=== PATIENT | male | born 1975 | race Caucasian/White ===

== ENCOUNTER 2019-05-16 13:28 | Outpatient (CLI) | payer OTHER, SELFPAY ==
--- NOTE | 2019-05-16 13:34 | XRR_ITS ---
PROCEDURE INFORMATION: Exam: XR Left Knee Exam date and time: 05/16/2019 2:27 PM Age: 44 years old Clinical indication: Pain; Knee; Left; Additional info: Arthritis, bilateral knee pain TECHNIQUE: Imaging protocol: XR Left knee. Views: Frontal, lateral, and oblique views. COMPARISON: No relevant prior studies available. FINDINGS: Bones/joints: No acute abnormality identified. A small quadriceps tendon enthesis of the superior pole of the patella is present. Soft tissues: Normal. XR/XR knee LT 3V* [id number] IMPRESSION: No acute findings.
--- NOTE | 2019-05-16 13:34 | XRR_ITS ---
PROCEDURE INFORMATION: Exam: XR Chest, 2 Views Exam date and time: 05/16/2019 2:29 PM Age: 44 years old Clinical indication: Condition or disease; Lung condition and disease; Asthma; Severity not specified; Additional info: Asthma; Arthritis TECHNIQUE: Imaging protocol: XR of the chest Views: 2 views. COMPARISON: No relevant prior studies available. FINDINGS: Lungs: The lungs are clear bilaterally. The pulmonary vasculature is normal. Pleural space: No pleural effusion. No pneumothorax. Heart/Mediastinum: The heart is normal in size and contour. Bones/joints: Right lateral and anterior vertebral body marginal osteophytes are noted at multiple thoracic spinal levels. XR/XR chest 2V* [id number] IMPRESSION: No acute cardiopulmonary abnormality identified.
--- NOTE | 2019-05-16 13:34 | XRR_ITS ---
PROCEDURE INFORMATION: Exam: XR Thoracic Spine, 3 Views Exam date and time: 05/16/2019 2:29 PM Age: 44 years old Clinical indication: Pain in thoracic spine; Additional info: Arthritis, back pain for years TECHNIQUE: Imaging protocol: XR of the thoracic spine, 3 views. Other technique: AP and lateral views and a swimmer's lateral view of the thoracic spine are submitted. COMPARISON: No relevant prior studies available. FINDINGS: Vertebrae: Right lateral vertebral body marginal osteophytes are noted at lower thoracic spinal levels. Soft tissues: Normal. XR/XR thoracic spine 2V [id number] IMPRESSION: 1. Degenerative changes as above. 2. No acute thoracic spinal bony abnormality identified.
--- NOTE | 2019-05-16 13:34 | XRR_ITS ---
PROCEDURE INFORMATION: Exam: XR Right Knee Exam date and time: 05/16/2019 2:27 PM Age: 44 years old Clinical indication: Pain; Knee; Right; Additional info: Arthritis, bilateral knee pain TECHNIQUE: Imaging protocol: XR Right knee. Views: Frontal, lateral, and oblique views. COMPARISON: No relevant prior studies available. FINDINGS: Bones/joints: Normal. Soft tissues: Normal. XR/XR knee RT 3V* [id number] IMPRESSION: No acute findings.
--- NOTE | 2019-05-16 13:34 | XRR_ITS ---
PROCEDURE INFORMATION: Exam: XR Lumbosacral Spine, 2 or 3 Views Exam date and time: 05/16/2019 2:29 PM Age: 44 years old Clinical indication: Low back pain; Additional info: Arthritis, back pain for years TECHNIQUE: Imaging protocol: XR of the lumbosacral spine, 3 views. Other technique: AP, lateral and spot lateral views of the lumbar spine are submitted. COMPARISON: No relevant prior studies available. FINDINGS: Vertebrae: Bilateral L4-L5 lumbar facet primary osteoarthritis, greater on the right. Soft tissues: Normal. XR/XR lumbar spine 2-3V* [id number] IMPRESSION: Bilateral lower lumbar facet primary osteoarthritis.
--- NOTE | 2019-05-16 13:54 | PFTS_ITS ---
Date of Study:05/16/2019 Date of Dictation: MECHANICS: Forced vital capacity (FVC) is reduced. Forced expiratory volume in one second (FEV1) is reduced. FEV1/FVC is normal. FLOW VOLUME LOOP: Narrow. LUNG VOLUMES: Not measured DIFFUSING CAPACITY FOR CARBON MONOXIDE: Not measured. INTERPRETATION: The pulmonary function tests are consistent with moderate restriction. There is no significant postbronchodilator response. MTDD
== END 2019-05-16 13:29 | disposition home or self-care (01) ==
PROVIDERS: Family Provider Internal Medicine; Visit Provider Orthopaedic Surgery
DX: J45.909 Unspecified asthma, uncomplicated (principal); M54.6 Pain in thoracic spine; M47.894 Other spondylosis, thoracic region; M54.5 Low back pain; M47.896 Other spondylosis, lumbar region; M25.562 Pain in left knee; M25.561 Pain in right knee
CPT/HCPCS: 71046; 72070; 72100; 73562; 94060; J7611

== ENCOUNTER 2019-07-07 14:03 | Outpatient (CLI) | payer OTHER, SELFPAY ==
--- NOTE | 2019-07-07 13:45 | XR_ITS ---
WS: [id number] ABDOMEN: SUPINE FILM HISTORY: renal calculus COMPARISON: None available. Normal bowel gas pattern. Right kidney: No definite stones identified. Possible 3 mm calcification in the mid RIGHT ureter late ral to the L4 vertebral body. Left kidney: No renal or ureteral stone identified. XR/XR KUB [id number] IMPRESSION: Indeterminate for 3 mm middle RIGHT ureteral calcification.
== END 2019-07-07 14:04 | disposition home or self-care (01) ==
LOC: RAD 14:06
PROVIDERS: Family Provider Internal Medicine; PCP Internal Medicine; Visit Provider Nurse Practitioner Family
DX: N20.0 Calculus of kidney (principal)
CPT/HCPCS: 74018; 81001

== ENCOUNTER 2019-07-18 12:44 | Emergency (ER) | payer OTHER, SELFPAY ==
[2019-07-18 12:53] VITALS: BP 170/112; PULSE 71; RESP 18; TEMP 37.1; O2SAT 98; BMI 38.7
--- NOTE | 2019-07-18 13:06 | CT_ITS ---
WS: [id number] CT ABDOMEN AND PELVIS NONCONTRAST HISTORY: Flank/Abdominal Pain TECHNIQUE: Imaging performed through the abdomen and pelvis. Coronal and sagittal reformats are submi tted. All CT scans at [facility] use at least one of these dose optimization techniques: automated exposure control; mA and/or kV adjustment per patient size (includes targeted exams where d ose is matched to clinical indication); or iterative reconstruction. DLP: 1869.73 mGy.cm COMPARISON: 04/21/2019 Lower thorax: No pneumonia. Small hiatal hernia. Liver: Mild hepatomegaly with moderate to severe hepatic steatosis. No bile duct dilatation. Gallbladder: Unremarkable. Pancreas: Normal. Spleen: Normal. Adrenal glands: Normal. Right kidney: Mild perinephric stranding. There is very slight dilatation of the RIGHT renal pelvis a nd RIGHT ureter with mild periureteral stranding. No calcification within the ureter. There is a calc ification measuring 3 mm in the central dependent portion of the urinary bladder. This is likely an e xtrinsic recently extruded calcification. Additional nonobstructing 2 mm calcifications in the renal pelvis. Left kidney: No obstruction. There are tiny calcifications which are nonobstructing in the renal pelv is. Normal caliber LEFT ureter. Abdominal aorta and IVC are unremarkable. No free fluid, intraperitoneal air or significant lymphadenopathy. GI tract: Normal appendix. No GI tract obstruction. No inflammation. There are a few diverticula with out diverticulitis. Abdominal wall: Small fat-containing umbilical hernia. Pelvis: Well-distended urinary bladder. There is a stone measuring 3 mm in the dependent portion of t he urinary bladder. Osseous structures: Unremarkable. CT/CT kidney stone [id number] IMPRESSION: 1. Very mild RIGHT perinephric and periureteral stranding. No obstructing calc ifications along the course of the ureters. There is a 3 mm stone in the depend ent portion of the urinary bladder which is probably a recently extruded calcif ication from the RIGHT ureter. 2. Additional nonobstructing 2 mm calcifications within each kidney. 3. Normal appendix. 4. Moderate hepatomegaly with severe hepatic steatosis. 5. Small hiatal hernia.
--- NOTE | 2019-07-18 13:07 | W.ED.GENADLT ---
HPI - General Adult General: Chief complaint: General Medical Stated complaint: KIDNEY STONES Time Seen by Provider: 07/18/19 13:01 History of Present Illness: HPI narrative: Adam is a very nice 44-year-old male who comes in complaining of right flank pain. He states this feels like a kidney stone that he has had in the past. The patient denies any blood in his urine. He has had nausea but no vomiting. Denies any fevers or chills. Denies any change in his bowel habits. Associated symptoms: Deny chest pain, confusion, diaphoresis, dyspnea, headache(s), malaise, nausea, rash, palpitations, syncope or vomiting Review of Systems General: Reports: other (negative unless marked) Const: Denies: fever, chills, body aches, fatigue, malaise or diaphoresis Eyes: Denies: change in vision or blurry vision ENMT: Denies: throat pain, painful swallowing, hoarseness, ear pain, ear discharge, Change in hearing or nasal discharge Card: Denies: chest pain, palpitations, irregular heart rhythm, syncope, pre-syncope, shortness of breath on exertion or shortness of breath when lying down Resp: Denies: shortness of breath, productive cough, non-productive cough, wheezing, coughing up blood or chest congestion GI: Denies: abdominal pain, nausea, vomiting, vomiting blood, coffee grounds in vomit, diarrhea, constipation, cramping, blood in stool or black tarry stool : Reports: flank pain; Denies: difficulty urinating, painful urination, urinary frequency, urinary urgency, decreased urine ouput, urinary incontinence or blood in urine Musc: Denies: neck pain, back pain, extremity pain, extremity swelling, joint pain, joint swelling, joint warmth or joint stiffness Skin/Breast: Denies: rash, skin tenderness or yellow skin Neuro: Denies: headache, numbness in extremities, weakness in extremities, changes in sensation, lack of coordination, difficulty walking, dizziness, vertigo or confusion Endo: Denies: excessive thirst, tired all the time, cold intolerance, excessive sweating, flushing or hot flashes Johnathan/Lymph: Denies: easy bruising, easy bleeding, petechiae or enlarged lymph nodes All/Imm: Denies: hives, throat swelling, tongue swelling, facial swelling or acute wheezing PFSH ED PFSH: Medical History Diabetes Hyperlipemia Hypertension Renal calculi Sleep apnea Surgical History History of placement of ear tubes History of tonsillectomy Family History Mother , 64 Cancer colon, breast, lung Diabetes Father No problems noted. Social History Smoking and tobacco status: never smoked Alcohol intake: never Marital status: Current occupational status: employed History of recent travel: No Physical Exam Const: COMMON NORMALS: no apparent distress, oriented x3, no limitations, healthy appearing and well nourished EXAM LIMITATIONS: no altered mental status GENERAL APPEARANCE: cooperative, well kempt and well developed ORIENTATION/CONSCIOUSNESS: Yes awake HENMT: COMMON NORMALS: normocephalic, head/scalp atraumatic, hearing grossly normal bilaterally, external ears normal, EAC's normal, external nose normal and moist oral mucous membranes HEAD & SCALP: normal to inspection, normocephalic and atraumatic FACE & SINUS: normal facial exam and face symmetric NOSE: external nose normal and nares normal EXTERNAL EAR: Yes external ears normal EXTERNAL AUDITORY CANAL: EAC's normal MOUTH: oral and palatal mucosa normal and tongue normal Eye: COMMON NORMALS: PERRL, EOMs intact bilaterally, conjunctivae normal and no scleral icterus GENERAL EYE: normal appearance of both eyes and normal light reflex CONJUNCTIVA: Yes conjunctivae normal SCLERA: sclerae normal CORNEA: Yes corneas normal PUPIL: Yes PERRL DIRECT OPHTHALMOSCOPY: Yes normal light reflex Neck/C-Spine: COMMON NORMALS: full ROM, no lymphadenopathy, supple, no meningeal signs and no JVD GENERAL: Yes normal visual inspection and Yes trachea midline CERVICAL SPINE: Yes cervical ROM normal Chest: COMMONS NORMALS: inspection of chest normal and palpation of chest normal Resp: COMMON NORMALS: normal respiratory effort, no retractions, no use of accessory muscles and clear to auscultation bilaterally EFFORT & INSPECTION: Yes able to speak in complete sentences AUSCULTATION: clear to auscultation bilaterally Cardio: COMMON NORMALS: no JVD, regular rate, regular rhythm, S1 normal heart sound, S2 normal heart sound, no gallops, no clicks, no murmurs and no rub JUGULAR VENOUS DISTENTION: no JVD RATE: regular rate RHYTHM: regular rhythm HEART SOUNDS: S1 normal and S2 normal GI: COMMON NORMALS: soft to palpation, non-tender, no hepatosplenomegaly and no masses INSPECTION: Yes normal to inspection PALPATION: Yes soft and Yes no hepatosplenomegaly : COMMON NORMALS: Yes no CVA tenderness BLADDER/KIDNEY EXAM: Yes no CVA tenderness Back/Pelvis: COMMON NORMALS: no CVA tenderness, thoracic and lumbar spine normal to inspection, no thoracic nor lumbar tenderness and thoraco-lumbar ROM normal Extremity: COMMON NORMALS: normal to inspection, full ROM, normal capillary refill, no joint enlargement, no clubbing, cyanosis or edema and no calf tenderness Neuro: COMMON NORMALS: oriented x3, CN's II-XII intact bilaterally, moves all extremities, no focal motor deficits and no sensory deficits noted MENINGEAL SIGNS: Yes no meningeal signs Psych: COMMON NORMALS: mental status grossly normal, thought process normal, cooperative, affect normal, speech normal and activity/motor behavior normal APPEARANCE: Yes well kempt SPEECH: Yes normal speech THOUGHT PROCESS: normal thought process Skin: COMMON NORMALS: no rashes or lesions noted, skin turgor normal, no jaundice, no petechiae and no mottling GENERAL SKIN EXAM: no rashes or lesions noted and turgor normal Course Vital Signs: Vital signs: Vital Signs Temperature 98.7 F 07/18/19 12:53 Pulse Rate 71 07/18/19 12:53 Respiratory Rate 18 07/18/19 13:59 Blood Pressure 170/112 07/18/19 12:53 Pulse Oximetry 98 07/18/19 13:59 MDM - General Adult MDM Narrative: Medical decision making narrative: 1450 -the patient is feeling much better and is ready to go home. He declines any further evaluation. He does agree to wait for his urinalysis to come back to be certain there is no evidence of infection. The patient appears as though he is just passed a stone. He agrees to continue to strain his urine and will follow-up with Dr. Garner. Lab Data: Attestation: I reviewed the patient's lab results. Labs: Lab Results 07/18/19 07/18/19 Range/Units 13:26 13:26 WBC 7.8 (4.0-10.0) 10^3/ uL RBC 4.36 (4.1-5.3) 10^6/u L Hgb 13.1 (11.7-16.6) g/dL Hct 37.0 L (42.0-52.0) % MCV 84.9 (80-94) fL MCH 30.0 (28.0-34.0) pg MCHC 35.4 (30.0-36.0) g/dL RDW 13.1 (12.1-15.1) % Plt Count 151 (130-400) 10^3/c mm MPV 9.3 (7.4-10.4) fL Neut % (Auto) 57.1 % Lymph % (Auto) 33.7 % [place] % (Auto) 5.9 % Eos % (Auto) 2.6 % Baso % (Auto) 0.3 % Neut # (Auto) 4.5 (1.8-7.7) 10^3/u L Lymph # (Auto) 2.6 (0.8-4.8) 10^3/u L [place] # (Auto) 0.5 (0.2-0.9) 10^3/u L Eos # (Auto) 0.2 (0.0-0.8) 10^3/u L Baso # (Auto) 0.0 (0.0-0.1) 10^3/u L Nucleated RBC % (a uto) 0 % Nucleated RBCs # 0.0 /100WBC Sodium 139 (136-145) mmol/L Potassium 4.3 (3.5-5.1) mmol/L Chloride 104 (98-107) mmol/L Carbon Dioxide 23 (22-29) mmol/L Anion Gap 16.3 (5-19) BUN 12 (6-20) mg/dL Creatinine 0.8 (0.7-1.2) mg/dL GFR Calculation 106.0 (90-130) mL/min Glucose 195 H (65-115) mg/dL Calculated Osmolal ity 289 (285-295) mOsm/k g Calcium 9.7 (8.5-10.5) mg/dL Total Bilirubin 0.4 (0.15-1.2) mg/dL AST 26 (0-40) U/L ALT 40 (0-41) U/L Alkaline Phosphata se 69 (40-130) IU/L Total Protein 6.9 (6.6-8.7) g/dL Albumin 4.2 (3.5-5.2) g/dL Globulin 2.7 (1.3-4.6) g/dL Lipase 19 (13-60) U/L Imaging Data^: CT Abd/Pel: Radiologist's impression: [place] [address] [place] [address] CT Scan Report Signed Patient: Adam Schwartz Unit #: [id number] : 1975 Age/Sex: 44 / M ADM Date: 07/18/19 Loc: ER Room/Bed: Attending Dr: Ordering Provider/Ordering MD: Trinity Solano DO Date of Service: 07/18/19 Procedure(s): CT kidney stone 16369 Accession Number(s): [id number] Report Number: [id number] WS: [id number] CT ABDOMEN AND PELVIS NONCONTRAST HISTORY: Flank/Abdominal Pain TECHNIQUE: Imaging performed through the abdomen and pelvis. Coronal and sagittal reformats are submitted. All CT scans at [facility] use at least one of these dose optimization techniques: automated exposure control; mA and/or kV adjustment per patient size (includes targeted exams where dose is matched to clinical indication); or iterative reconstruction. DLP: 1869.73 mGy.cm COMPARISON: 04/21/2019 Lower thorax: No pneumonia. Small hiatal hernia. Liver: Mild hepatomegaly with moderate to severe hepatic steatosis. No bile duct dilatation. Gallbladder: Unremarkable. Pancreas: Normal. Spleen: Normal. Adrenal glands: Normal. Right kidney: Mild perinephric stranding. There is very slight dilatation of the RIGHT renal pelvis and RIGHT ureter with mild periureteral stranding. No calcification within the ureter. There is a calcification measuring 3 mm in the central dependent portion of the urinary bladder. This is likely an extrinsic recently extruded calcification. Additional nonobstructing 2 mm calcifications in the renal pelvis. Left kidney: No obstruction. There are tiny calcifications which are nonobstructing in the renal pelvis. Normal caliber LEFT ureter. Abdominal aorta and IVC are unremarkable. No free fluid, intraperitoneal air or significant lymphadenopathy. GI tract: Normal appendix. No GI tract obstruction. No inflammation. There are a few diverticula without diverticulitis. Abdominal wall: Small fat-containing umbilical hernia. Pelvis: Well-distended urinary bladder. There is a stone measuring 3 mm in the dependent portion of the urinary bladder. Osseous structures: Unremarkable. CT/CT kidney stone [id number] IMPRESSION: 1. Very mild RIGHT perinephric and periureteral stranding. No obstructing calcifications along the course of the ureters. There is a 3 mm stone in the dependent portion of the urinary bladder which is probably a recently extruded calcification from the RIGHT ureter. 2. Additional nonobstructing 2 mm calcifications within each kidney. 3. Normal appendix. 4. Moderate hepatomegaly with severe hepatic steatosis. 5. Small hiatal hernia. Dictated By: Neeru Young DO Signed By: Neeru Young DO Signed Date/Time: 07/18/19 1352 DD/ 1346 Discharge Plan Discharge Patient Disposition: Home, Self-Care Clinical Impression: Renal calculi Condition: Stable Prescriptions: No Action metoprolol tartrate 50 mg tablet 50 mg PO DAILY RF: 0 aspirin 81 mg tablet,delayed release (DR/EC) 81 mg PO DAILY RF: 0 Lantus U-100 Insulin 100 unit/mL solution 64 unit SUBCUT DAILY RF: 0 insulin aspart U-100 [Novolog U-100 Insulin aspart] 100 unit/mL solution 5 unit SUBCUT TID RF: 0 pravastatin 20 mg tablet 20 mg PO DAILY RF: 0 doxycycline hyclate 100 mg capsule 100 mg PO BID RF: 0 Referrals: Ifeanyi Mays [Primary Care Provider] - Sam Garner MD [Physician] - 1-3 days Discharge Diet: Advance as tolerated Discharge Activity: Increase activity as tolerated Patient Instructions: Kidney Stones (ED), Renal Colic (ED), How to Strain Your Urine (ED), Flank Pain (ED) Activity Restrictions/Additional Instructions: Please return to the ER immediately for any of the signs or symptoms listed on your discharge instruction sheets, worsening/changing of your symptoms, you are not getting better as quickly as expected, or for ANY other cause or concerns. Coding Level of Care Code ED Drop Pit Worker for Elena Fwd Exam Comprehensive
[2019-07-18 13:35] LABS: Basophils % 0.3 %; Eosinophils # 0.2 10^3/uL (0.0-0.8); Eosinophils % 2.6 %; Hemoglobin 13.1 g/dL (11.7-16.6); Lymphocytes # 2.6 10^3/uL (0.8-4.8); Lymphocytes % 33.7 %; Mean Corpuscular HGB Conc 35.4 g/dL (30.0-36.0); Mean Corpuscular Volume 84.9 fL (80-94); Mean Platelet Volume 9.3 fL (7.4-10.4); Monocytes # 0.5 10^3/uL (0.2-0.9); Monocytes % 5.9 %; Neutrophils # 4.5 10^3/uL (1.8-7.7); Neutrophils % 57.1 %; Nucleated Red Blood Cells % 0 %; Platelet Count 151 10^3/cmm (130-400); Red Blood Count 4.36 10^6/uL (4.1-5.3); Red Cell Distribution Width 13.1 % (12.1-15.1); White Blood Count 7.8 10^3/uL (4.0-10.0)
[2019-07-18] MEDS: ondansetron 2 mg/ML SDV 2 mL 4 MG IVP (13:58)
[2019-07-18 13:59] VITALS: RESP 18; O2SAT 98
[2019-07-18] MEDS: HYDROmorphone 1 mg/mL INJ 1 mL 0.5 MG IVP (13:59)
[2019-07-18 14:03] LABS: Alanine Aminotransferase 40 U/L (0-41); Albumin Level 4.2 g/dL (3.5-5.2); Alkaline Phosphatase 69 IU/L (40-130); Anion Gap 16.3 (5-19); Aspartate Amino Transferase 26 U/L (0-40); Blood Urea Nitrogen 12 mg/dL (6-20); Calcium 9.7 mg/dL (8.5-10.5); Carbon Dioxide 23 mmol/L (22-29); Chloride 104 mmol/L (98-107); Globulin 2.7 g/dL (1.3-4.6); Glucose 195 mg/dL (65-115); Lipase 19 U/L (13-60); Osmolality Calculated 289 mOsm/kg (285-295); Potassium 4.3 mmol/L (3.5-5.1); Sodium 139 mmol/L (136-145); Total Bilirubin 0.4 mg/dL (0.15-1.2); Total Protein 6.9 g/dL (6.6-8.7)
[2019-07-18 15:05] LABS: Add Urine Culture? No; Bilirubin Urine Neg (NEGATIVE); Blood Urine 2+ (Negative); Glucose Urine UA Norm (Normal); Ketones Urine Negative (Negative); Leukocyte Esterase Urine Negative (Negative); Nitrate Urine Negative (Negative); Protein Urine Neg (Negative); Urine Appearance Clear (CLEAR); Urine Color Yellow (Yellow); Urobilinogen Urine Norm (Negative); pH Urine 5 (5-7)
[2019-07-18 15:20] VITALS: BP 146/99; PULSE 74; RESP 16; O2SAT 96
[2019-07-18 17:20] VITALS: BP 138/92; PULSE 78; RESP 16; O2SAT 97
--- NOTE | 2019-07-19 11:11 | DCPLANNER ---
air quality manager had message to schedule a follow up appointment for patient with Dr. Garner. air quality manager called the office of Dr. Garner, spoke with Maggie, gave clinic patients information. air quality manager was told that patients information would be printed and given to Dayan for review. Clinic will call patient with appointment information. air quality manager will call for appointment information.
--- NOTE | 2019-07-22 10:00 | DCPLANNER ---
Patient had an appointment scheduled for 07.20.[address] Garner. Patient did attend appointment.
== END 2019-07-18 17:23 | disposition home or self-care (01) ==
PROVIDERS: Emergency Provider Emergency Medicine; PCP Internal Medicine
DX: N20.0 Calculus of kidney (principal); Z79.82 Long term (current) use of aspirin; Z79.4 Long term (current) use of insulin; E11.9 Type 2 diabetes mellitus without complications; E78.5 Hyperlipidemia, unspecified; I10 Essential (primary) hypertension; Z87.442 Personal history of urinary calculi
CPT/HCPCS: 12345; 74176; 80053; 81001; 83690; 85025; 96374; 96375; 99281; 99283; J1170; J2405

== ENCOUNTER 2019-07-20 13:02 | Outpatient (CLI) | payer OTHER, SELFPAY ==
--- NOTE | 2019-07-20 13:12 | XR_ITS ---
WS: [id number] ABDOMEN: SUPINE FILM HISTORY: RENAL CALCULI COMPARISON: 07/18/2019 and 07/07/2019 Normal bowel gas pattern. Right kidney: No renal or ureteral stone identified. Left kidney: No renal or ureteral stone identified. XR/XR KUB [id number] IMPRESSION: No residual RIGHT ureteral calcifications.
== END 2019-07-20 13:03 | disposition home or self-care (01) ==
LOC: RAD 13:04
PROVIDERS: PCP Internal Medicine; Visit Provider Urology
DX: N20.0 Calculus of kidney (principal)
CPT/HCPCS: 74018; 81001; 82365

== ENCOUNTER 2019-10-03 11:14 | Outpatient (CLI) | payer OTHER, SELFPAY ==
--- NOTE | 2019-10-03 11:20 | XRR_ITS ---
PROCEDURE INFORMATION: Exam: XR Right Ribs Exam date and time: 10/03/2019 12:12 PM Age: 44 years old Clinical indication: Right rib pain from fall TECHNIQUE: Imaging protocol: XR Right ribs. Views: 2 views. COMPARISON: CR XR chest 2V* [id number] 05/16/2019 2:04 PM FINDINGS: Bones/joints: There are nondisplaced fractures of the lateral 4th and 5th ribs. Lungs: No lung contusion. Pleural space: No pneumothorax. Soft tissues: No acute soft tissue abnormality. XR/XR ribs RT 2V* [id number] IMPRESSION: Nondisplaced 4th and 5th rib fractures. No pneumothorax.
== END 2019-10-03 11:15 | disposition home or self-care (01) ==
LOC: RAD 11:16
PROVIDERS: PCP Internal Medicine; Visit Provider Nurse Practitioner Family
DX: S22.41XA Multiple fractures of ribs, right side, initial encounter for closed fracture (principal); X58.XXXA Exposure to other specified factors, initial encounter
CPT/HCPCS: 71100

== ENCOUNTER 2020-02-25 06:46 | Emergency (ER) | payer OTHER, SELFPAY ==
[2020-02-25] VITALS (7 sets, daily range): BP systolic 134–177; BP diastolic 74–110; PULSE 67–80; RESP 16–18; TEMP 36.4–36.9; O2SAT 95–98; BMI 38.7
--- NOTE | 2020-02-25 06:59 | XRR_ITS ---
PROCEDURE INFORMATION: Exam: XR Abdomen, 1 View Exam date and time: 02/25/2020 7:19 AM Age: 45 years old Clinical indication: Abdominal pain; Flank; Left; Additional info: Nephrolithiasis TECHNIQUE: Imaging protocol: XR of the abdomen. Views: Frontal supine view of the abdomen. 1 View. COMPARISON: CR XR KUB [id number] 07/20/2019 1:26 PM FINDINGS: Gastrointestinal tract: Normal. No bowel dilation. Organs: No renal calcifications are seen. Bones/joints: Unremarkable. XR/XR KUB portable [id number] IMPRESSION: No acute findings.
[2020-02-25] MEDS: morphine 4 mg/mL SDV 1 mL IVP (07:27)
[2020-02-25] MEDS: ondansetron 2 mg/ML SDV 2 mL 4 MG IVP (07:32)
[2020-02-25 07:53] LABS: Basophils % 0.3 %; Eosinophils # 0.1 10^3/uL (0.0-0.8); Eosinophils % 1.5 %; Hematocrit 38.6 % (42.0-52.0); Hemoglobin 13.2 g/dL (11.7-16.6); Lymphocytes % 33.8 %; Mean Corpuscular HGB Conc 34.2 g/dL (30.0-36.0); Mean Corpuscular Hemoglobin 30.1 pg (28.0-34.0); Mean Corpuscular Volume 87.9 fL (80-94); Monocytes # 0.5 10^3/uL (0.2-0.9); Monocytes % 6.1 %; Neutrophils # 5.07 10^3/uL (1.8-7.7); Neutrophils % 58.1 %; Nucleated Red Blood Cells % 0 %; Platelet Count 186 10^3/cmm (130-400); Red Blood Count 4.39 10^6/uL (4.1-5.3); White Blood Count 8.7 10^3/uL (4.0-10.0)
--- NOTE | 2020-02-25 07:54 | ED_ITS ---
HPI - General Adult General: Chief complaint: General Medical Stated complaint: flank pain Time Seen by Provider: 02/25/20 07:00 History of Present Illness: HPI narrative: 45-year-old male comes in complaining of left flank pain that began overnight. He states it feels like when he has had kidney stones in the past has had multiple episodes of stones previously. Denies any fever sweats chills dysuria urgency or frequency denies any hematuria. Onset (ago): hour(s) Location: abdomen (Left flank) Severity: severe Quality: stabbing Pain Consistency: constant Relieving factors: none Exacerbating factors: none Associated symptoms: Deny chest pain, confusion, cough, diaphoresis, decreased appetite, dyspnea, fevers/chills, headache(s), malaise, nausea, rash, palpitations, seizures, short of breath, syncope, vomiting or weakness Treatments prior to arrival: none Review of Systems Const: Denies: malaise or diaphoresis ENMT: Denies: throat pain, ear or mastoid pain, nasal discharge or nasal congestion Card: Denies: chest pain, palpitations or syncope Resp: Denies: dyspnea GI: Denies: nausea or vomiting : Denies: flank pain, dysuria, urinary frequency or urinary urgency Skin/Breast: Denies: rash Neuro: Denies: headache(s) or confusion PFSH ED PFSH: Medical History (Updated 02/25/20 @ 10:24 by Tereso Garza DO) Diabetes Hyperlipemia Hypertension Renal calculi Sleep apnea Surgical History History of placement of ear tubes History of tonsillectomy Family History Mother , 64 Cancer colon, breast, lung Diabetes Father No problems noted. Social History Smoking and tobacco status: never smoked Alcohol intake: never Marital status: Current occupational status: employed History of recent travel: No Physical Exam Const: COMMON NORMALS: no acute distress GENERAL APPEARANCE: cooperative and comfortable ORIENTATION/CONSCIOUSNESS: Yes awake, Yes oriented to person, Yes oriented to place and Yes oriented to time HENMT: COMMON NORMALS: normocephalic, atraumatic and hearing grossly normal bilaterally HEAD & SCALP: normocephalic and atraumatic Neck/C-Spine: COMMON NORMALS: no JVD Resp: COMMON NORMALS: normal respiratory effort, No retractions, No use of accessory muscles and clear to auscultation bilaterally AUSCULTATION: clear to auscultation bilaterally Cardio: COMMON NORMALS: no JVD, regular rate, regular rhythm and No murmurs present (Cardio) RATE: regular rate RHYTHM: regular rhythm GI: COMMON NORMALS: Soft to palpation and No hepatosplenomegaly present AUSCULTATION: Yes normoactive bowel sounds PALPATION: Yes Soft to palpation, No Tenderness to palpation present (GI), No Guarding due to palpation present (GI) and Yes No hepatosplenomegaly present : BLADDER/KIDNEY EXAM: Yes CVA tenderness Back/Pelvis: GENERAL BACK: Yes CVA tenderness CVA tenderness: left Extremity: COMMON NORMALS: normal to inspection, capillary refill normal, no clubbing, cyanosis or edema, no calf tenderness and no pedal edema Neuro: SENSORIUM/ORIENTATION: Yes oriented to person, Yes oriented to place and Yes oriented to time Skin: COMMON NORMALS: no rashes or lesions noted GENERAL SKIN EXAM: no rashes or lesions noted Course Vital Signs: Vital signs: Vital Signs Temperature 98.5 F 02/25/20 10:33 Pulse Rate 70 02/25/20 10:33 Respiratory Rate 16 02/25/20 10:33 Blood Pressure 138/86 02/25/20 10:33 Pulse Oximetry 97 02/25/20 10:33 MDM - General Adult MDM Narrative: Medical decision making narrative: Patient is feeling better. I suspected the patient may have already passed a stone the only unanswered question is he does not even have hematuria from after passing the stone the other possibility is this is just musculoskeletal pain although it does not seem to be reproducible in any way on active physical exam measures or on palpation. We will go ahead and discharge him home with hydrocodone watch symptoms closely for any problems return. Lab Data: Labs: Lab Results 02/25/20 02/25/20 02/25/20 Range/Units 07:24 07:24 09:04 WBC 8.7 (4.0-10.0) 10^3/ uL RBC 4.39 (4.1-5.3) 10^6/u L Hgb 13.2 (11.7-16.6) g/dL Hct 38.6 L (42.0-52.0) % MCV 87.9 (80-94) fL MCH 30.1 (28.0-34.0) pg MCHC 34.2 (30.0-36.0) g/dL RDW 13.0 (12.1-15.1) % Plt Count 186 (130-400) 10^3/c mm MPV 10.0 (7.4-10.4) fL Neut % (Auto) 58.1 % Lymph % (Auto) 33.8 % Fisher % (Auto) 6.1 % Eos % (Auto) 1.5 % Baso % (Auto) 0.3 % Neut # (Auto) 5.07 (1.8-7.7) 10^3/u L Lymph # (Auto) 3.0 (0.8-4.8) 10^3/u L Fisher # (Auto) 0.5 (0.2-0.9) 10^3/u L Eos # (Auto) 0.1 (0.0-0.8) 10^3/u L Baso # (Auto) 0.0 (0.0-0.1) 10^3/u L Nucleated RBC % (a uto) 0 % Nucleated RBCs # 0.0 /100WBC Sodium 136 (136-145) mmol/L Potassium 3.7 (3.5-5.1) mmol/L Chloride 100 (98-107) mmol/L Carbon Dioxide 24 (22-29) mmol/L Anion Gap 15.7 (5-19) BUN 15 (6-20) mg/dL Creatinine 0.6 L (0.7-1.2) mg/dL GFR Calculation 147.0 H (90-130) mL/min Glucose 303 H (65-115) mg/dL Calculated Osmolal ity 294 (285-295) mOsm/k g Calcium 9.0 (8.5-10.5) mg/dL Urine Color Straw (Yellow) Urine Appearance Clear (CLEAR) Urine pH 5 (5-7) Ur Specific Gravit y 1.025 (1.005-1.030) Urine Protein 3+ H (Negative) Urine Glucose (UA) 4+ H (Normal) Urine Ketones Negative (Negative) Urine Blood Neg (Negative) Urine Nitrate Negative (Negative) Urine Bilirubin Neg (Negative) Urine Urobilinogen Norm (Negative) mg/dL Ur Leukocyte Carlene ase Negative (Negative) Urine RBC None (0-2) /hpf Urine WBC None (0-5) /hpf Ur Squamous Epith Cells None (0-5) /hpf Amorphous Sediment Not Reportable Urine Bacteria None (NONE) /hpf Urine Mucus 2+ /hpf Discharge Plan Discharge Patient Disposition: Home Clinical Impression: Renal calculi Condition: Stable Prescriptions: New hydrocodone-acetaminophen 5-325 mg tablet 1 tab PO Q6H PRN (Reason: pain) Qty: 10 RF: 0 No Action metoprolol tartrate 50 mg tablet 75 mg PO DAILY RF: 0 aspirin 81 mg tablet,delayed release (DR/EC) 81 mg PO DAILY RF: 0 Lantus U-100 Insulin 100 unit/mL solution 64 unit SUBCUT DAILY RF: 0 insulin aspart U-100 [Novolog U-100 Insulin aspart] 100 unit/mL solution See Rx Instructions .ROUTE .COMPLEX RF: 0 pravastatin 20 mg tablet 10 mg PO DAILY RF: 0 doxycycline hyclate 100 mg capsule 100 mg PO BID RF: 0 minocycline 100 mg Capsule 100 mg PO BID RF: 0 gabapentin 100 mg Capsule 50 mg PO BEDTIME RF: 0 Fish Oil 1,000 mg (120 mg-180 mg) Capsule 1 cap PO BID RF: 0 Discharge Orders: Discharge ED (Routine); Ordered 02/25/20 Ordered By: Tereso Garza Referrals: Ifeanyi Mays [Primary Care Provider] - Coding Level of Care Code ED [employer] Operator for Chg Fwd Exam Comprehensive
--- NOTE | 2020-02-25 08:14 | CTR_ITS ---
PROCEDURE INFORMATION: Exam: CT Abdomen And Pelvis Without Contrast Exam date and time: 02/25/2020 8:25 AM Age: 45 years old Clinical indication: Abdominal pain; Flank; Left; Additional info: Flank pain TECHNIQUE: Imaging protocol: Computed tomography of the abdomen and pelvis without contrast. Radiation optimization: All CT scans at this facility use at least one of these dose optimization techniques: automated exposure control; mA and/or kV adjustment per patient size (includes targeted exams where dose is matched to clinical indication); or iterative reconstruction. COMPARISON: CT abdomen pelvis wo con [id number] 04/21/2019 2:57 AM RADIATION DOSE METRICS: Total DLP (mGy-cm): 1868.89 FINDINGS: Liver: The liver is enlarged. No mass. Gallbladder and bile ducts: Normal. No calcified stones. No ductal dilation. Pancreas: Normal. No ductal dilation. Spleen: Normal. No splenomegaly. Adrenal glands: Normal. No mass. Kidneys and ureters: Multiple tiny nonobstructing calcifications are present in the kidneys. There is no hydronephrosis. No ureteral calculi are seen. Stomach and bowel: Unremarkable. No obstruction. No mucosal thickening. Appendix: No evidence of appendicitis. Intraperitoneal space: Unremarkable. No free air. No significant fluid collection. Vasculature: Unremarkable. No abdominal aortic aneurysm. Lymph nodes: Unremarkable. No enlarged lymph nodes. Urinary bladder: Unremarkable as visualized. Reproductive: Unremarkable as visualized. Bones/joints: Degenerative changes are present in the spine with scattered osteophytes and sclerosis. Soft tissues: There is a small fat containing umbilical hernia. CT/CT kidney stone [id number] IMPRESSION: 1. Bilateral nonobstructing nephrolithiasis. 2. Hepatomegaly. 3. No acute abnormalities are seen in the abdomen and pelvis. Radiation Dose CTDIVOL = (mGy): DLP = 1868.89 (mGy-cm)
[2020-02-25 09:24] LABS: Anion Gap 15.7 (5-19); Blood Urea Nitrogen 15 mg/dL (6-20); Carbon Dioxide 24 mmol/L (22-29); Chloride 100 mmol/L (98-107); Glucose 303 mg/dL (65-115); Osmolality Calculated 294 mOsm/kg (285-295); Potassium 3.7 mmol/L (3.5-5.1); Sodium 136 mmol/L (136-145)
[2020-02-25 09:30] LABS: Add Urine Microscopic? YES; Bilirubin Urine Neg (Negative); Blood Urine Neg (Negative); Glucose Urine UA 4+ (Normal); Ketones Urine Negative (Negative); Leukocyte Esterase Urine Negative (Negative); Nitrate Urine Negative (Negative); Protein Urine 3+ (Negative); Specific Gravity, Urine 1.025 (1.005-1.030); Urine Appearance Clear (CLEAR); Urine Color Straw (Yellow); Urobilinogen Urine Norm (Negative); pH Urine 5 (5-7)
[2020-02-25 09:45] LABS: Mucus Urine 2+ /hpf
[2020-02-25 09:46] LABS: Add Urine Culture? No
== END 2020-02-25 10:35 | disposition home or self-care (01) ==
PROVIDERS: Emergency Provider Family Medicine; PCP Internal Medicine
DX: N20.0 Calculus of kidney (principal); Z79.82 Long term (current) use of aspirin; Z79.4 Long term (current) use of insulin; E11.9 Type 2 diabetes mellitus without complications; E78.5 Hyperlipidemia, unspecified; I10 Essential (primary) hypertension; Z87.442 Personal history of urinary calculi
CPT/HCPCS: 12345; 74018; 74176; 80048; 81001; 85025; 96374; 96375; 99283; J2270; J2405

== ENCOUNTER 2020-07-18 13:00 | Outpatient (CLI) | payer OTHER, SELFPAY ==
--- NOTE | 2020-07-18 13:10 | XR_ITS ---
WS: [id number] KUB, AP view, 07/18/2020 Clinical Data: N20.0 - Calculus of kidney Comparison: KUB, 02/25/2020. Findings: No abnormal intraabdominal masses or calcifications are seen. There is no dilatated small bowel or ev idence of obstruction. There is air in the colon which obscures detail over both kidneys. XR/XR KUB [id number] Impression: Negative KUB.
== END 2020-07-18 13:01 | disposition home or self-care (01) ==
LOC: RAD 13:06
PROVIDERS: PCP Internal Medicine; Visit Provider Urology
DX: N20.0 Calculus of kidney (principal)
CPT/HCPCS: 74018; 81003

== ENCOUNTER 2020-07-27 14:52 | Emergency (ER) | payer OTHER, SELFPAY ==
[2020-07-27 15:05] VITALS: BP 158/83; PULSE 67; RESP 18; TEMP 37.1; O2SAT 98; BMI 37.1
--- NOTE | 2020-07-27 16:24 | XRR_ITS ---
PROCEDURE INFORMATION: Exam: XR Abdomen Exam date and time: 07/27/2020 4:31 PM Age: 45 years old Clinical indication: Abdominal pain; Flank; Left; Additional info: Left flank pain, HX nonobstructing stones TECHNIQUE: Imaging protocol: XR of the abdomen. Views: Frontal supine view of the abdomen. 1 View. COMPARISON: CR XR KUB [id number] 07/18/2020 1:20 PM FINDINGS: Lungs: Calcified granulomas in the right base. Gastrointestinal tract: Scattered gas and stool in normal caliber colon. Paucity of small bowel gas. Intraperitoneal space: No pneumoperitoneum. Bones/joints: Old right rib fracture. Other findings: No visible calculus. XR/XR KUB portable [id number] IMPRESSION: 1. No visible calculus. 2. Nonspecific nonobstructive bowel gas pattern.
--- NOTE | 2020-07-27 16:33 | W.ED.MALEGU ---
Documented by User: TRENA Lange 07/27/20 16:35 HPI - Male Genitourinary General: Chief complaint: Urogenital-Male Stated complaint: POSS KIDNEY STONES Time Seen by Provider: 07/27/20 16:14 History of Present Illness: HPI Narrative: Patient states he has left flank pain is nonradiating. Has had some back problems in the past but denies any back problems presently. Saw Dr. Garner 2 to 3 weeks ago said he use told that he had stones in his kidneys but none are obstructing. Previous visits never had obstructing stones. Said he sure to kidney stone was causing his pain. Denies fever chills or problems urinating. Says it hurts for him to set up move walk. Complaint: other (Flank pain left started today) Onset (ago): hour(s) Duration: constant Location: left flank Severity: moderate Quality: sharp Exacerbating factors: movement Associated symptoms: Reports no associated symptoms; Deny hematuria, nausea or vomiting Review of Systems Const: Denies: fever(s), chills or body aches Eyes: Denies: change in vision or blurry vision ENMT: Denies: throat pain or nasal congestion Card: Denies: chest pain or dyspnea on exertion Resp: Denies: dyspnea, productive cough or non-productive cough GI: Denies: abdominal pain, nausea or vomiting : Reports: other (Left flank pain started today); Denies: difficulty urinating or hematuria Musc: Denies: extremity pain Skin/Breast: Denies: rash Neuro: Denies: headache(s) Psych: Denies: anxiety or depression Johnathan/Lymph: Denies: easy bruising PFSH ED PFSH: Medical History (Updated 07/27/20 @ 17:56 by CHEMA Childers) Diabetes Erectile dysfunction Hyperlipemia Hypertension Post-void dribbling Renal calculi Sleep apnea Surgical History History of placement of ear tubes History of tonsillectomy Family History Mother , 64 Cancer colon, breast, lung Diabetes Father No problems noted. Social History Smoking and tobacco status: never smoked Alcohol intake: never Marital status: Current occupational status: employed History of recent travel: No Physical Exam Const: COMMON NORMALS: no acute distress, average body habitus and patient oriented x3 HENMT: COMMON NORMALS: normocephalic HEAD & SCALP: normal to inspection and normocephalic FACE & SINUS: normal facial exam Eye: COMMON NORMALS: conjunctivae normal GENERAL EYE: appearance normal, both eyes and all related structures CONJUNCTIVA: Yes conjunctivae normal Neck/C-Spine: COMMON NORMALS: no JVD Chest: COMMONS NORMALS: normal inspection of the chest Resp: COMMON NORMALS: normal respiratory effort and clear to auscultation bilaterally AUSCULTATION: clear to auscultation bilaterally Cardio: COMMON NORMALS: no JVD, regular rate and regular rhythm RATE: regular rate RHYTHM: regular rhythm GI: COMMON NORMALS: Normal to inspection, nondistended, normoactive bowel sounds present : BLADDER/KIDNEY EXAM: Yes CVA tenderness on the left Back/Pelvis: GENERAL BACK: Yes CVA tenderness Extremity: COMMON NORMALS: normal to inspection and full ROM Neuro: COMMON NORMALS: patient oriented x3 Course Vital Signs: Vital signs: Vital Signs Temperature 98.7 F 07/27/20 15:05 Pulse Rate 67 07/27/20 15:05 Respiratory Rate 18 07/27/20 15:05 Blood Pressure 158/83 07/27/20 15:05 Pulse Oximetry 98 07/27/20 15:05 MDM - Male Lab Data: Labs: Lab Results 07/27/20 Range/Units 16:20 Urine Color Yellow (Yellow) Urine Appearance Clear (CLEAR) Urine pH 5 (5-7) Ur Specific Gravit y 1.020 (1.005-1.030) Urine Protein 1+ H (Negative) Urine Glucose (UA) Norm (Normal) Urine Ketones Negative (Negative) Urine Blood Neg (Negative) Urine Nitrate Negative (Negative) Urine Bilirubin Neg (Negative) Urine Urobilinogen Norm (Negative) mg/dL Ur Leukocyte Carlene ase Negative (Negative) Urine RBC None (0-2) /hpf Urine WBC 0-4 H (0-5) /hpf Ur Squamous Epith Cells 0-4 H (0-5) /hpf Amorphous Sediment Not Reportable Urine Bacteria Trace (NONE) /hpf Urine Mucus Trace /hpf Discharge Plan Discharge Patient Disposition: Home Clinical Impression: Acute left-sided back pain Qualifiers: Back pain location: low back pain Sciatica presence: without sciatica Qualified Code(s): M54.5 - Low back pain Condition: Stable Prescriptions: New hydrocodone-acetaminophen 5-325 mg tablet 1 tab PO Q6H PRN (Reason: pain) Qty: 14 RF: 0 Zofran 4 mg tablet 4 mg PO Q6H PRN (Reason: nausea and vomiting) Qty: 14 RF: 0 Flomax 0.4 mg capsule 0.4 mg PO DAILY Qty: 10 RF: 0 No Action metoprolol tartrate 50 mg tablet 75 mg PO DAILY RF: 0 aspirin 81 mg tablet,delayed release (DR/EC) 81 mg PO DAILY RF: 0 Lantus U-100 Insulin 100 unit/mL solution 64 unit SUBCUT DAILY RF: 0 pravastatin 20 mg tablet 10 mg PO DAILY RF: 0 benzoyl [id number]-wbtvbq 2.5-1-4 % gel topical BID RF: 0 sildenafil 100 mg tablet 100 mg PO DAILY PRN (Reason: sexual activity) Qty: 20 RF: 12 gabapentin 100 mg Capsule 100 mg PO BEDTIME RF: 0 omega 5-gtj-jym-fish oil [Fish Oil] 1,000 mg (120 mg-180 mg) Capsule 1 cap PO BID RF: 0 Discharge Orders: Discharge ED (Routine); Ordered 07/27/20 Ordered By: Yvonne Pittman Referrals: Rosa Mackay MD [Primary Care Provider] - Patient Instructions: Opioid Safety Activity Restrictions/Additional Instructions: [facility] is committed to fighting the nationwide opiate epidemic. We are providing ALL patients with information regarding opiate safety. If you received opiate pain medication during your stay or if you received a prescription for opiate pain medication-please review this handout. If not, you may disregard. Thank you. As discussed drink plenty of water and begin straining your urine. [facility] Gar[facility] in the next 3 to 5 days if symptoms persist. You need to return to the emergency department for worsening back or flank pain, inability to urinate, repetitive episodes of vomiting, inability to hold down your medications, fevers, or any other concerns you may have. Sign Out Sign Out Data: Patient Sign Out occurred on 07/27/20 at 17:04. Patient's care was discussed, and care was transferred from to CHEMA Childers. Coding Level of Care Code ED [employer] Manager for Chg Fwd Exam Comprehensive Documented by User: CHEMA Childers 07/27/20 18:07 HPI - Male Genitourinary General: Chief complaint: Urogenital-Male Stated complaint: POSS KIDNEY STONES Time Seen by Provider: 07/27/20 16:14 PFSH ED PFSH: Medical History (Updated 07/27/20 @ 17:56 by CHEMA Childers) Diabetes Erectile dysfunction Hyperlipemia Hypertension Post-void dribbling Renal calculi Sleep apnea Surgical History History of placement of ear tubes History of tonsillectomy Family History Mother , 64 Cancer colon, breast, lung Diabetes Father No problems noted. Social History Smoking and tobacco status: never smoked Alcohol intake: never Marital status: Current occupational status: employed History of recent travel: No Course Vital Signs: Vital signs: Vital Signs Temperature 98.7 F 07/27/20 15:05 Pulse Rate 67 07/27/20 15:05 Respiratory Rate 18 07/27/20 15:05 Blood Pressure 158/83 07/27/20 15:05 Pulse Oximetry 98 07/27/20 15:05 MDM - Male MDM Narrative: Medical decision making narrative: Assumed care of patient from TRENA Lange. Patient is a 45-year-old male who presents to ED today with complaints of left-sided back pain that occurred today while at work. He was concerned for a kidney or ureter stone as he has had these previously. He has no history of obstructive uropathy. Patient reports pain improved after IM Toradol. UA shows no hematuria or no signs of infection. No stone noted on his KUB. Discussed with patient obtaining CT imaging to definitely rule out stone or obstructive process but he declines stating he would prefer not to have one if possible. Vitals are normal. He will be given urine strainer and placed on flomax/pain/nausea meds and recommend he followup with Dr. Garner or the [facility]. Strict return to ED precautions given and he verbalizes understanding. Lab Data: Labs: Lab Results 07/27/20 Range/Units 16:20 Urine Color Yellow (Yellow) Urine Appearance Clear (CLEAR) Urine pH 5 (5-7) Ur Specific Gravit y 1.020 (1.005-1.030) Urine Protein 1+ H (Negative) Urine Glucose (UA) Norm (Normal) Urine Ketones Negative (Negative) Urine Blood Neg (Negative) Urine Nitrate Negative (Negative) Urine Bilirubin Neg (Negative) Urine Urobilinogen Norm (Negative) mg/dL Ur Leukocyte Carlene ase Negative (Negative) Urine RBC None (0-2) /hpf Urine WBC 0-4 H (0-5) /hpf Ur Squamous Epith Cells 0-4 H (0-5) /hpf Amorphous Sediment Not Reportable Urine Bacteria Trace (NONE) /hpf Urine Mucus Trace /hpf Discharge Plan Discharge Patient Disposition: Home Clinical Impression: Acute left-sided back pain Qualifiers: Back pain location: low back pain Sciatica presence: without sciatica Qualified Code(s): M54.5 - Low back pain Condition: Stable Prescriptions: New hydrocodone-acetaminophen 5-325 mg tablet 1 tab PO Q6H PRN (Reason: pain) Qty: 14 RF: 0 Zofran 4 mg tablet 4 mg PO Q6H PRN (Reason: nausea and vomiting) Qty: 14 RF: 0 Flomax 0.4 mg capsule 0.4 mg PO DAILY Qty: 10 RF: 0 No Action metoprolol tartrate 50 mg tablet 75 mg PO DAILY RF: 0 aspirin 81 mg tablet,delayed release (DR/EC) 81 mg PO DAILY RF: 0 Lantus U-100 Insulin 100 unit/mL solution 64 unit SUBCUT DAILY RF: 0 pravastatin 20 mg tablet 10 mg PO DAILY RF: 0 benzoyl nzc-pmfpffotdgs-nsmtvc 2.5-1-4 % gel topical BID RF: 0 sildenafil 100 mg tablet 100 mg PO DAILY PRN (Reason: sexual activity) Qty: 20 RF: 12 gabapentin 100 mg Capsule 100 mg PO BEDTIME RF: 0 omega 7-rci-nwb-fish oil [Fish Oil] 1,000 mg (120 mg-180 mg) Capsule 1 cap PO BID RF: 0 Discharge Orders: Discharge ED (Routine); Ordered 07/27/20 Ordered By: Yvonne Pittman Referrals: Rosa Mackay MD [Primary Care Provider] - Patient Instructions: Opioid Safety Activity Restrictions/Additional Instructions: [facility] is committed to fighting the nationwide opiate epidemic. We are providing ALL patients with information regarding opiate safety. If you received opiate pain medication during your stay or if you received a prescription for opiate pain medication-please review this handout. If not, you may disregard. Thank you. As discussed drink plenty of water and begin straining your urine. [facility] or [facility] Garner in the next 3 to 5 days if symptoms persist. You need to return to the emergency department for worsening back or flank pain, inability to urinate, repetitive episodes of vomiting, inability to hold down your medications, fevers, or any other concerns you may have. Sign Out Sign Out Data: Patient Sign Out occurred on 07/27/20 at 17:04. Patient's care was discussed, and care was transferred from to CHEMA Childers. Coding Level of Care Code ED [employer] Manager for Elena Fwd Exam Comprehensive
[2020-07-27 16:45] LABS: Add Urine Microscopic? YES; Bilirubin Urine Neg (Negative); Blood Urine Neg (Negative); Glucose Urine UA Norm (Normal); Ketones Urine Negative (Negative); Leukocyte Esterase Urine Negative (Negative); Nitrate Urine Negative (Negative); Protein Urine 1+ (Negative); Urine Appearance Clear (CLEAR); Urine Color Yellow (Yellow); Urobilinogen Urine Norm (Negative); pH Urine 5 (5-7)
[2020-07-27 16:46] LABS: Add Urine Culture? No; Bacteria Urine TRACE /hpf; Mucus Urine TRACE /hpf; Squamous Epithelial Cell Urine 0-4 /hpf (0-5); WBC Urine 0-4 /hpf (0-5)
[2020-07-27] MEDS: ketorolac 60 mg/2 mL INJ IM (17:15)
[2020-07-27 18:28] VITALS: PULSE 70; RESP 18; O2SAT 97
== END 2020-07-27 18:29 | disposition home or self-care (01) ==
PROVIDERS: Nurse Practitioner Family; Emergency Provider Physician Assistant; PCP Family Medicine
DX: M54.5 Low back pain (principal); Z79.82 Long term (current) use of aspirin; Z79.4 Long term (current) use of insulin; E11.9 Type 2 diabetes mellitus without complications; E78.5 Hyperlipidemia, unspecified; I10 Essential (primary) hypertension
CPT/HCPCS: 74018; 81001; 96372; 99283; J1885

== ENCOUNTER 2020-07-30 13:58 | Emergency (ER) | payer OTHER, SELFPAY ==
[2020-07-30 14:06] VITALS: PULSE 81; RESP 18; TEMP 37.3; O2SAT 96; BMI 37.1
--- NOTE | 2020-07-30 14:17 | CT_ITS ---
WS: [id number] CT ABDOMEN AND PELVIS NONCONTRAST HISTORY: L back pain TECHNIQUE: Imaging performed through the abdomen and pelvis. Coronal and sagittal reformats are submi tted. All CT scans at [facility] use at least one of these dose optimization techniques: automated exposure control; mA and/or kV adjustment per patient size (includes targeted exams where d ose is matched to clinical indication); or iterative reconstruction. DLP: 1733.05 mGy.cm COMPARISON: 02/25/2020 Lower thorax: Groundglass and mixed mosaic attenuation at the lung bases. Heart size is slightly enla rged. Small hiatal hernia. Liver: Hepatic steatosis and mild hepatomegaly. No bile duct dilatation. Gallbladder: Normal gallbladder. Pancreas: Normal size and attenuation. Normal pancreatic duct. No pancreatitis or mass. Spleen: Normal. Adrenal glands: Normal. No mass. Right kidney: There are several nonobstructing 2 to 3 mm calcifications in the RIGHT kidney. No hydro nephrosis. No hydroureter. Left kidney: 3 mm nonobstructing calcification lower pole LEFT kidney. No hydronephrosis or hydrouret er. Aorta: Normal abdominal aorta, no aneurysm or atherosclerosis. GI tract: The appendix is not identified. No inflammatory changes in the RIGHT lower quadrant. Abdominal wall: Small umbilical hernia contains fat only. Pelvis: Normal. Osseous structures: Unremarkable. CT/CT kidney stone [id number] IMPRESSION: 1. No acute abdominal or pelvic abnormalities. 2. Nonobstructing bilateral renal calcifications. 3. The appendix is not identified.
--- NOTE | 2020-07-30 14:17 | W.ED.BACK ---
HPI - Back Pain/Injury General: Chief Complaint: Urogenital-Male Stated Complaint: L flank pain Time Seen by Provider: 07/30/20 14:12 Source: patient Mode of arrival: ambulatory Limitations: no limitations History of Present Illness: HPI Narrative: Patient is a 45-year-old male who presents to ED today with a complaint of left lower back pain. Patient was seen at our facility several days ago for similar symptoms. He is concerned he could have a ureter stone as he has been diagnosed with these previously. UA on his previous visit did not show hematuria. He had a negative KUB. CT scan was offered during that visit but patient declined. He tells me pain never really seem to get better after discharge. He states pain does not radiate around into his abdomen. He has no flank pain. No difficulty with urination. He has not noticed any hematuria. He denies nausea or vomiting. Denies midline back pain. MD elicited complaint: back pain Timing: constant Similar Symptoms Previously: Yes Quality: sharp Location: left lower back Radiation: none Exacerbating factors: none Relieving factors: none Associated symptoms: Reports no associated symptoms; Deny abdominal pain, chills, dysuria, fatigue, fever(s), nausea, urinary urgency or vomiting Treatments prior to arrival: prescription analgesics Work related injury: No Review of Systems Const: Denies: fever(s), chills, body aches, fatigue or malaise Card: Denies: chest pain Resp: Denies: dyspnea GI: Denies: abdominal pain, nausea, vomiting, diarrhea, constipation or change in stool character : Denies: flank pain, difficulty urinating, dysuria, urinary frequency, urinary urgency or urinary hesitancy Musc: Reports: back pain; Denies: neck pain, extremity pain, extremity swelling, joint pain or joint swelling Skin/Breast: Denies: rash Neuro: Denies: headache(s), numbness in extremities, weakness in extremities or sensory changes PFSH ED PFSH: Medical History (Updated 07/30/20 @ 16:02 by CHEMA Childers) Diabetes Erectile dysfunction Hyperlipemia Hypertension Post-void dribbling Renal calculi Sleep apnea Surgical History History of placement of ear tubes History of tonsillectomy Family History Mother , 64 Cancer colon, breast, lung Diabetes Father No problems noted. Social History Smoking and tobacco status: never smoked Alcohol intake: never Marital status: Current occupational status: employed History of recent travel: No Physical Exam Const: COMMON NORMALS: no acute distress, patient oriented x3, no limitations and alert GENERAL APPEARANCE: cooperative NUTRITIONAL APPEARANCE: obese ORIENTATION/CONSCIOUSNESS: Yes awake, Yes oriented to person, Yes oriented to place and Yes oriented to time Resp: COMMON NORMALS: normal respiratory effort and clear to auscultation bilaterally AUSCULTATION: clear to auscultation bilaterally Cardio: COMMON NORMALS: regular rate and regular rhythm RATE: regular rate RHYTHM: regular rhythm GI: COMMON NORMALS: Normal to inspection, nondistended, normoactive bowel sounds present, Soft to palpation, non-tender, No hepatosplenomegaly present and no masses PALPATION: Yes Soft to palpation and Yes No hepatosplenomegaly present : COMMON NORMALS: Yes no CVA tenderness BLADDER/KIDNEY EXAM: Yes no CVA tenderness Back/Pelvis: COMMON NORMALS: no CVA tenderness, thoracic and lumbar spine normal to inspection, no thoracic nor lumbar tenderness, thoraco-lumbar ROM normal and straight leg raise negative bilaterally THORACIC SPINE/UPPER BACK: Yes normal to inspection and Yes thoracic ROM normal LUMBAR SPINE/LOWER BACK: Yes lumbar ROM normal, No lumbar spinal tenderness and No paraspinal muscle spasm PELVIS: Yes buttocks normal BACK IMAGE (MALE): 1. TTP Extremity: COMMON NORMALS: normal to inspection Neuro: COMMON NORMALS: patient oriented x3 SENSORIUM/ORIENTATION: Yes alert, Yes oriented to person, Yes oriented to place and Yes oriented to time Skin: COMMON NORMALS: no rashes or lesions noted GENERAL SKIN EXAM: no rashes or lesions noted Course Vital Signs: Vital signs: Vital Signs Temperature 99.1 F 07/30/20 14:06 Pulse Rate 81 07/30/20 14:06 Respiratory Rate 18 07/30/20 14:44 Blood Pressure 178/88 07/30/20 14:44 Pulse Oximetry 98 07/30/20 14:44 MDM - Back Pain/Injury MDM Narrative: Medical decision making narrative: Patient's vital signs are normal. His labs and UA are non-concerning. There is no hematuria. Due to pain persisting CT imaging obtained today and normal. Discussed possible musculoskeletal reasons for patient's left back pain. Will treat with anti-inflammatory muscle relaxer and [facility] Lab Data: Labs: Lab Results 07/30/20 07/30/20 07/30/20 Range/Units 14:30 14:30 14:30 WBC 7.0 (4.0-10.0) 10^3/ uL RBC 4.24 (4.1-5.3) 10^6/u L Hgb 12.8 (11.7-16.6) g/dL Hct 36.7 L (42.0-52.0) % MCV 86.6 (80-94) fL MCH 30.2 (28.0-34.0) pg MCHC 34.9 (30.0-36.0) g/dL RDW 13.2 (12.1-15.1) % Plt Count 154 (130-400) 10^3/c mm MPV 9.5 (7.4-10.4) fL Neut % (Auto) 56.4 % Lymph % (Auto) 35.1 % Mcminn % (Auto) 6.2 % Eos % (Auto) 1.7 % Baso % (Auto) 0.3 % Neut # (Auto) 3.95 (1.8-7.7) 10^3/u L Lymph # (Auto) 2.5 (0.8-4.8) 10^3/u L Mcminn # (Auto) 0.4 (0.2-0.9) 10^3/u L Eos # (Auto) 0.1 (0.0-0.8) 10^3/u L Baso # (Auto) 0.0 (0.0-0.1) 10^3/u L Nucleated RBC % (a uto) 0 % Nucleated RBCs # 0.0 /100WBC Sodium 140 (136-145) mmol/L Potassium 3.7 (3.5-5.1) mmol/L Chloride 104 (98-107) mmol/L Carbon Dioxide 25 (22-29) mmol/L Anion Gap 14.7 (5-19) BUN 9 (6-20) mg/dL Creatinine 0.6 L (0.7-1.2) mg/dL GFR Calculation 147.0 H (90-130) mL/min Glucose 166 H (65-115) mg/dL Calculated Osmolal ity 292 (285-295) mOsm/k g Calcium 8.4 L (8.5-10.5) mg/dL Total Bilirubin 0.2 (0.15-1.2) mg/dL AST 26 (0-40) U/L ALT 33 (0-41) U/L Alkaline Phosphata se 73 (40-130) IU/L Total Protein 6.4 L (6.6-8.7) g/dL Albumin 4.2 (3.5-5.2) g/dL Globulin 2.2 (1.3-4.6) g/dL Urine Color Straw (Yellow) Urine Appearance Clear (CLEAR) Urine pH 6 (5-7) Ur Specific Gravit y 1.015 (1.005-1.030) Urine Protein Trace (Negative) Urine Glucose (UA) 2+ (Normal) Urine Ketones Negative (Negative) Urine Blood Neg (Negative) Urine Nitrate Negative (Negative) Urine Bilirubin Neg (Negative) Urine Urobilinogen Norm (Negative) mg/dL Ur Leukocyte Carlene ase Negative (Negative) Urine RBC None (0-2) /hpf Urine WBC None (0-5) /hpf Ur Squamous Epith Cells 0-4 H (0-5) /hpf Amorphous Sediment Not Reportable Urine Bacteria Trace (NONE) /hpf Imaging Data^: CT renal stone: Radiologist's impression: [address] [id number] Scan ReportSigned Patient: Adam Schwartz #: [id number]: 1975Acct#:[id number]/Sex: 45 / MADM Date: 07/30/20Loc: ERRoom/Bed:Attending Dr: Ordering Provider/Ordering MD: Yvonne Pittman Date of Service: 07/30/20 Procedure(s): CT kidney stone 29095 Accession Number(s): [id number] Report Number: [id number] WS: [id number] CT ABDOMEN AND PELVIS NONCONTRAST HISTORY: L back pain TECHNIQUE: Imaging performed through the abdomen and pelvis. Coronal and sagittal reformats are submitted. All CT scans at [facility] use at least one of these dose optimization techniques: automated exposure control; mA and/or kV adjustment per patient size (includes targeted exams where dose is matched to clinical indication); or iterative reconstruction. DLP: 1733.05 mGy.cm COMPARISON: 02/25/2020 Lower thorax: Groundglass and mixed mosaic attenuation at the lung bases. Heart size is slightly enlarged. Small hiatal hernia. Liver: Hepatic steatosis and mild hepatomegaly. No bile duct dilatation. Gallbladder: Normal gallbladder. Pancreas: Normal size and attenuation. Normal pancreatic duct. No pancreatitis or mass. Spleen: Normal. Adrenal glands: Normal. No mass. Right kidney: There are several nonobstructing 2 to 3 mm calcifications in the RIGHT kidney. No hydronephrosis. No hydroureter. Left kidney: 3 mm nonobstructing calcification lower pole LEFT kidney. No hydronephrosis or hydroureter. Aorta: Normal abdominal aorta, no aneurysm or atherosclerosis. GI tract: The appendix is not identified. No inflammatory changes in the RIGHT lower quadrant. Abdominal wall: Small umbilical hernia contains fat only. Pelvis: Normal. Osseous structures: Unremarkable. CT/CT kidney stone [id number] IMPRESSION: 1. No acute abdominal or pelvic abnormalities. 2. Nonobstructing bilateral renal calcifications. 3. The appendix is not identified. Dictated By:Neeru Young DOSigned By:Neeru Young DOSigned Date/Time:07/30/20 1550DD/ 1544 Discharge Plan Discharge Patient Disposition: Home Clinical Impression: Acute left-sided back pain Qualifiers: Back pain location: low back pain Sciatica presence: without sciatica Qualified Code(s): M54.5 - Low back pain Condition: Stable Prescriptions: New cyclobenzaprine 10 mg tablet 10 mg PO TID Qty: 14 RF: 0 diclofenac sodium 50 mg tablet,delayed release (DR/EC) 50 mg PO Q12H PRN (Reason: pain) Qty: 20 RF: 0 Discontinued hydrocodone-acetaminophen 5-325 mg tablet 1 tab PO Q6H PRN (Reason: pain) Qty: 14 RF: 0 No Action metoprolol tartrate 50 mg tablet 75 mg PO BID RF: 0 aspirin 81 mg tablet,delayed release (DR/EC) 81 mg PO DAILY RF: 0 Lantus U-100 Insulin 100 unit/mL solution 76 unit SUBCUT DAILY@12 RF: 0 sildenafil 100 mg tablet 100 mg PO DAILY PRN (Reason: sexual activity) Qty: 20 RF: 12 ondansetron HCl [Zofran] 4 mg tablet 4 mg PO Q6H PRN (Reason: nausea and vomiting) Qty: 14 RF: 0 tamsulosin [Flomax] 0.4 mg capsule 0.4 mg PO DAILY Qty: 10 RF: 0 gabapentin 100 mg Capsule 100 mg PO BEDTIME RF: 0 omega 5-lot-zlt-fish oil [Fish Oil] 1,000 mg (120 mg-180 mg) Capsule 1 cap PO BID RF: 0 pravastatin 40 mg Tablet 20 mg PO BEDTIME RF: 0 Tylenol Extra Strength 500 mg Tablet 1,000 mg PO PRN RF: 0 benzoyl peroxide 5 % Cleanser 1 applic TOPICAL QAM RF: 0 Benzoyl Peroxide 10 See Rx Instructions .ROUTE .COMPLEX RF: 0 Discharge Orders: Discharge ED (Routine); Ordered 07/30/20 Ordered By: Yvonen Pittman Referrals: Rosa Mackay MD [Primary Care Provider] - Activity Restrictions/Additional Instructions: As we discussed your CT scan did not show any ureter stone. Your labs and urine at this time overall look good. We will treat with anti-inflammatories and muscle relaxers and as we discussed [facility]. You may return to the emergency department at anytime for severe or uncontrollable pain, fevers, or any other concerns you may have. Coding Level of Care Code ED Inspector [employer] for Elena Bradshaw Exam Comprehensive
[2020-07-30] MEDS: morphine 4 mg/mL SDV 1 mL IVP (14:22)
[2020-07-30] MEDS: ondansetron 2 mg/ML SDV 2 mL 4 MG IVP (14:22)
[2020-07-30 14:44] VITALS: BP 178/88; RESP 18; O2SAT 98
[2020-07-30 14:44] LABS: Basophils % 0.3 %; Eosinophils # 0.1 10^3/uL (0.0-0.8); Eosinophils % 1.7 %; Hematocrit 36.7 % (42.0-52.0); Hemoglobin 12.8 g/dL (11.7-16.6); Lymphocytes # 2.5 10^3/uL (0.8-4.8); Lymphocytes % 35.1 %; Mean Corpuscular HGB Conc 34.9 g/dL (30.0-36.0); Mean Corpuscular Hemoglobin 30.2 pg (28.0-34.0); Mean Corpuscular Volume 86.6 fL (80-94); Mean Platelet Volume 9.5 fL (7.4-10.4); Monocytes # 0.4 10^3/uL (0.2-0.9); Monocytes % 6.2 %; Neutrophils # 3.95 10^3/uL (1.8-7.7); Neutrophils % 56.4 %; Nucleated Red Blood Cells % 0 %; Platelet Count 154 10^3/cmm (130-400); Red Blood Count 4.24 10^6/uL (4.1-5.3); Red Cell Distribution Width 13.2 % (12.1-15.1)
[2020-07-30 14:55] LABS: Specific Gravity, Urine 1.015 (1.005-1.030); Urine Appearance Clear (CLEAR); Urine Color Straw (Yellow); pH Urine 6 (5-7)
[2020-07-30 14:56] LABS: Add Urine Microscopic? YES; Bilirubin Urine Neg (Negative); Blood Urine Neg (Negative); Glucose Urine UA 2+ (Normal); Ketones Urine Negative (Negative); Leukocyte Esterase Urine Negative (Negative); Nitrate Urine Negative (Negative); Protein Urine Trace (Negative); Urobilinogen Urine Norm (Negative)
[2020-07-30 15:01] LABS: Add Urine Culture? No; Bacteria Urine TRACE /hpf; Squamous Epithelial Cell Urine 0-4 /hpf (0-5)
[2020-07-30 15:14] LABS: Alanine Aminotransferase 33 U/L (0-41); Albumin Level 4.2 g/dL (3.5-5.2); Alkaline Phosphatase 73 IU/L (40-130); Anion Gap 14.7 (5-19); Aspartate Amino Transferase 26 U/L (0-40); Blood Urea Nitrogen 9 mg/dL (6-20); Calcium 8.4 mg/dL (8.5-10.5); Carbon Dioxide 25 mmol/L (22-29); Chloride 104 mmol/L (98-107); Globulin 2.2 g/dL (1.3-4.6); Glucose 166 mg/dL (65-115); Osmolality Calculated 292 mOsm/kg (285-295); Potassium 3.7 mmol/L (3.5-5.1); Sodium 140 mmol/L (136-145); Total Bilirubin 0.2 mg/dL (0.15-1.2); Total Protein 6.4 g/dL (6.6-8.7)
[2020-07-30 15:44] VITALS: BP 145/85; PULSE 78; RESP 18; O2SAT 98
[2020-07-30 16:09] VITALS: BP 145/85; PULSE 78; RESP 18; O2SAT 98
== END 2020-07-30 16:10 | disposition home or self-care (01) ==
PROVIDERS: Emergency Provider Physician Assistant; PCP Family Medicine
DX: M54.5 Low back pain (principal); Z79.82 Long term (current) use of aspirin; Z79.4 Long term (current) use of insulin; E11.9 Type 2 diabetes mellitus without complications; E78.5 Hyperlipidemia, unspecified; I10 Essential (primary) hypertension; Z87.442 Personal history of urinary calculi
CPT/HCPCS: 74176; 80053; 81001; 85025; 96374; 96375; 99283; J2270; J2405

== ENCOUNTER 2020-08-05 19:54 | Emergency (ER) | payer OTHER, SELFPAY ==
[2020-08-05 20:03] VITALS: BP 159/92; PULSE 73; RESP 18; TEMP 36.4; O2SAT 99; BMI 37.5
[2020-08-05 22:08] VITALS: BP 209/116; PULSE 80; RESP 18; O2SAT 100
--- NOTE | 2020-08-05 22:21 | CTR_ITS ---
PROCEDURE INFORMATION: Exam: CT Abdomen And Pelvis Without Contrast Exam date and time: 08/05/2020 10:44 PM Age: 45 years old Clinical indication: Abdominal pain; Left; Patient HX: C/O L flank pain; Additional info: Falnk pain TECHNIQUE: Imaging protocol: Computed tomography of the abdomen and pelvis without contrast. Radiation optimization: All CT scans at this facility use at least one of these dose optimization techniques: automated exposure control; mA and/or kV adjustment per patient size (includes targeted exams where dose is matched to clinical indication); or iterative reconstruction. COMPARISON: CT kidney stone [id number] 02/25/2020 8:19 AM RADIATION DOSE METRICS: Total DLP (mGy-cm): 1977.68 FINDINGS: Lungs: There are subtle ground-glass opacity seen in the lower hemithoraces bilaterally possibly representing mild pulmonary fibrosis. Mild interstitial pneumonitis cannot be entirely excluded. Patchy areas centrilobular emphysema are seen in the lung bases bilaterally. Liver: Normal. No mass. Gallbladder and bile ducts: Normal. No calcified stones. No ductal dilation. Pancreas: Normal. No ductal dilation. Spleen: Normal. No splenomegaly. Adrenal glands: Normal. No mass. Kidneys and ureters: There are 2 nonobstructing 1.8 mm right renal calculi present. There is a 1.7 mm nonobstructing left renal calculus present. Stomach and bowel: Unremarkable. No obstruction. No mucosal thickening. Appendix: The appendix is visualized and is normal in configuration. Intraperitoneal space: Unremarkable. No free air. No significant fluid collection. Vasculature: Unremarkable. No abdominal aortic aneurysm. Lymph nodes: Unremarkable. No enlarged lymph nodes. Urinary bladder: Unremarkable as visualized. Reproductive: Unremarkable as visualized. Bones/joints: There is evidence of a healed 7th rib fracture on the right laterally. Soft tissues: Unremarkable. CT/CT kidney stone [id number] IMPRESSION: 1. There are no acute abdominal findings. 2. Bilateral nonobstructing renal calculi 3. Normal appendix 4. Probable mild centrilobular emphysema and pulmonary fibrosis. 5. No evidence for ureteral obstruction Radiation Dose CTDIVOL = (mGy): DLP = 1977.68 (mGy-cm)
[2020-08-05 22:31] LABS: Add Urine Microscopic? YES; Bilirubin Urine Neg (Negative); Blood Urine Neg (Negative); Glucose Urine UA 2+ (Normal); Ketones Urine Negative (Negative); Leukocyte Esterase Urine Negative (Negative); Nitrate Urine Negative (Negative); Protein Urine 1+ (Negative); Urine Appearance Clear (CLEAR); Urine Color Yellow (Yellow); Urobilinogen Urine Norm (Negative); pH Urine 6 (5-7)
[2020-08-05 22:36] LABS: Add Urine Culture? No; Bacteria Urine TRACE /hpf; Mucus Urine 2+ /hpf; RBC Urine 0-4 /hpf (0-2); WBC Urine 0-4 /hpf (0-5)
[2020-08-05] MEDS: ketorolac 30 mg/mL INJ IVP (22:38)
[2020-08-05 22:53] LABS: Basophils % 0.3 %; Eosinophils # 0.2 10^3/uL (0.0-0.8); Eosinophils % 2.3 %; Hematocrit 39.6 % (42.0-52.0); Hemoglobin 13.7 g/dL (11.7-16.6); Mean Corpuscular HGB Conc 34.6 g/dL (30.0-36.0); Mean Corpuscular Hemoglobin 30.5 pg (28.0-34.0); Mean Corpuscular Volume 88.2 fL (80-94); Mean Platelet Volume 10.2 fL (7.4-10.4); Monocytes # 0.5 10^3/uL (0.2-0.9); Monocytes % 5.9 %; Neutrophils # 4.07 10^3/uL (1.8-7.7); Neutrophils % 52.2 %; Nucleated Red Blood Cells % 0 %; Platelet Count 162 10^3/cmm (130-400); Red Blood Count 4.49 10^6/uL (4.1-5.3); Red Cell Distribution Width 13.4 % (12.1-15.1); White Blood Count 7.8 10^3/uL (4.0-10.0)
[2020-08-05 23:25] VITALS: BP 165/101
[2020-08-05 23:39] LABS: Alanine Aminotransferase 23 U/L (0-41); Albumin Level 4.2 g/dL (3.5-5.2); Alkaline Phosphatase 72 IU/L (40-130); Anion Gap 16.8 (5-19); Aspartate Amino Transferase 16 U/L (0-40); Blood Urea Nitrogen 12 mg/dL (6-20); Carbon Dioxide 22 mmol/L (22-29); Chloride 106 mmol/L (98-107); Globulin 2.4 g/dL (1.3-4.6); Glomerular Filtration Rate 123.1 mL/min (90-130); Glucose 95 mg/dL (65-115); Lipase 27 U/L (13-60); Osmolality Calculated 292 mOsm/kg (285-295); Potassium 3.8 mmol/L (3.5-5.1); Sodium 141 mmol/L (136-145); Total Bilirubin 0.4 mg/dL (0.15-1.2); Total Protein 6.6 g/dL (6.6-8.7)
[2020-08-05 23:53] VITALS: BP 146/84
[2020-08-06] MEDS: HYDROcodone-acetaminophen 5-325 mg Tablet 1 TAB PO (00:36)
--- NOTE | 2020-08-06 01:01 | ED_ITS ---
Documented by User: Audelia Macias 08/06/20 02:38 HPI - Back Pain/Injury General: Chief Complaint: Back Pain/Injury Stated Complaint: Lower L side pain/ severe Time Seen by Provider: 08/05/20 21:50 Source: patient Mode of arrival: ambulatory Limitations: no limitations History of Present Illness: MD elicited complaint: back pain Onset (ago): day(s) (1 day but previous episode seen here on 07/30) Timing: intermittent Severity: mild Similar Symptoms Previously: Yes Quality: dull Location: left flank and right flank Radiation: none Exacerbating factors: none Relieving factors: none Associated symptoms: Deny abdominal pain, arthralgias, chills, change in bowel habits, difficulty walking, dysuria, fatigue, fecal incontinence, fever(s), hematuria, myalgias, nausea, numbness, syncope, tingling/numbness/burning, urinary frequency, urinary urgency, vomiting, weakness or other Review of Systems Const: Denies: fever(s), chills or fatigue Eyes: Denies: change in vision, blurry vision, blind spots, photophobia, eye discomfort, eye discharge, eye redness, floaters or seeing flashes ENMT: Denies: throat pain, uvular edema, enlarged tonsils, odynophagia, hoarseness, mouth pain, swelling of lips/tongue, oral sores, bleeding gums, dental pain, dry mouth, ear or mastoid pain, ear discharge, change in hearing, tinnitus, disequilibrium, nasal discharge, nasal congestion, post nasal drip or sinus pain Card: Denies: syncope Resp: Denies: dyspnea, productive cough, non-productive cough, wheezing, stridor, pain on inspiration, change in phlegm color, hemoptysis or chest congestion GI: Denies: abdominal pain, nausea, vomiting, fecal incontinence or change in bowel habits : Reports: flank pain; Denies: dysuria, urinary urgency or hematuria Musc: Denies: neck pain, back pain, extremity pain, extremity swelling, joint pain, joint swelling, joint redness, joint warmth or deformity Skin/Breast: Denies: rash, pruritus, erythema, sores, new lesions, changes in skin color or dry skin Neuro: Denies: difficulty walking Psych: Denies: anxiety, depression, suicidal ideation or homicidal ideation Endo: Denies: polyuria, polydipsia, tired all the time, cold intolerance, excessive sweating, flushing, hot flashes or heat intolerance Johnathan/Lymph: Denies: easy bruising, easy bleeding, petechiae, purpura, enlarged lymph nodes or tender lymph nodes All/Imm: Denies: urticaria, throat swelling, tongue swelling, facial swelling, acute wheezing or itchy eyes PFSH ED PFSH: Medical History Diabetes Erectile dysfunction Hyperlipemia Hypertension Post-void dribbling Renal calculi Sleep apnea Surgical History History of placement of ear tubes History of tonsillectomy Family History Mother , 64 Cancer colon, breast, lung Diabetes Father No problems noted. Social History Smoking and tobacco status: never smoked Alcohol intake: never Marital status: Current occupational status: employed History of recent travel: No Physical Exam Const: COMMON NORMALS: no acute distress, patient oriented x3, healthy appearing, alert and well nourished GENERAL APPEARANCE: cooperative, comfortable, well kempt and well developed; not ill appearing ORIENTATION/CONSCIOUSNESS: Yes awake, Yes oriented to person, Yes oriented to place and Yes oriented to time HENMT: COMMON NORMALS: normocephalic, atraumatic, hearing grossly normal bilaterally, external ears normal, EAC's normal, TM's normal bilaterally, Normal external nose present, Normal nasal mucous membranes and turbinates present and moist oral mucous membranes HEAD & SCALP: normal to inspection, normocephalic and atraumatic FACE & SINUS: normal facial exam, sinuses nontender and face symmetric NOSE: Normal external nose present, Normal nares present, Normal nasal mucous membranes and turbinates present, No nasal discharge present and Abnormal external nose present EXTERNAL EAR: Yes external ears normal and Yes mastoids normal EXTERNAL AUDITORY CANAL: EAC's normal TYMPANIC MEMBRANE: TM's normal bilaterally MOUTH: Normal oral and palatal mucosa present, lip normal, tongue normal and Normal salivary glands and ducts present THROAT: no uvular edema Eye: COMMON NORMALS: Equal, round and reactive pupils present, EOMs intact bilaterally, conjunctivae normal, no scleral icterus and no papilledema GENERAL EYE: appearance normal, both eyes and all related structures EYELID: eyelids normal CONJUNCTIVA: Yes conjunctivae normal SCLERA: sclerae normal CORNEA: Yes corneas normal PUPIL: Yes Equal, round and reactive pupils present DIRECT OPHTHALMOSCOPY: Yes no papilledema Neck/C-Spine: COMMON NORMALS: full ROM, no lymphadenopathy, supple, no meningeal signs, no JVD and Thyroid normal GENERAL: Yes normal visual inspection and Yes trachea midline THYROID: Thyroid normal CERVICAL SPINE: Yes cervical ROM normal Lymph: LYMPHATIC: no lymphadenopathy noted and no lymphedema noted Chest: COMMONS NORMALS: normal inspection of the chest and normal palpation of entire chest wall Resp: COMMON NORMALS: normal respiratory effort, No retractions, No use of accessory muscles and clear to auscultation bilaterally EFFORT & INSPECTION: Yes able to speak in complete sentences and Yes symmetric chest movement AUS CULTATION: clear to auscultation bilaterally Cardio: COMMON NORMALS: no JVD, regular rate and regular rhythm RATE: regular rate RHYTHM: regular rhythm GI: COMMON NORMALS: Normal to inspection, nondistended, normoactive bowel s ounds present, Soft to palpation, non-tender, No hepatosplenomegaly present, no masses and no bruits INSPECTION: Yes normal to inspection AUSCULTATION: Yes normoactive bowel sounds PALPATION: Yes Soft to palpation and Yes No hepatosplenomegaly present PERCUSSION: normal to percussion RECTAL EXAM: Yes deferred : COMMON NORMALS: Yes no CVA tenderness BLADDER/KIDNEY EXAM: Yes no CVA tenderness Back/Pelvis: COMMON NORMALS: no CVA tenderness, thoracic and lumbar spine normal to inspection, no thoracic nor lumbar tenderness, thoraco-lumbar ROM normal and straight leg raise negative bilaterally THORACIC SPINE/UPPER BACK: Yes normal to inspection LUMBAR SPINE/LOWER BACK: Yes normal to inspection Extremity: COMMON NORMALS: normal to inspection, full ROM and capillary refill normal GENERAL: Yes normal exam except as noted Neuro: COMMON NORMALS: patient oriented x3, CN's II-XII intact bilaterally, moves all extremities, no focal motor deficits, no sensory deficits noted, deep tendon reflexes 2+ bilaterally and gait normal SENSORIUM/ORIENTATION: Yes alert, Yes oriented to person, Yes oriented to place and Yes oriented to time MENINGEAL SIGNS: Yes no meningeal signs CRANIAL NERVES: Yes CN normal except as noted SPEECH: speech normal GAIT: Yes Normal gait present SENSORY EXAM: Yes extremities MOTOR EXAM: 5/5 motor strength present throughout Psych: COMMON NORMALS: mental status grossly normal, Normal thought process present, cooperative, normal affect, speech normal, activity/motor behavior normal, denies hallucinations, denies homicidal ideation and denies suicidal ideation APPEARANCE: Yes grossly normal and Yes well kempt ATTITUDE: Yes calm ACTIVITY/MOTOR BEHAVIOR: Yes appropriate eye contact SPEECH: Yes normal speech THOUGHT PROCESS: Normal thought process present THOUGHT CO NTENT: Yes Normal thought content present ATTENTION/CONCENTRATION: Yes attention grossly intact MEMORY/COGNITION: Yes memory grossly intact INSIGHT: Good insight present (Psych) JUDGEMENT: Good judgement present (Psych) Skin: COMMON NORMALS: no rashes or lesions noted, no wounds, turgor normal, no jaundice, no petechiae and no mottling GENERAL SKIN EXAM: no rashes or lesions noted and turgor normal Course Vital Signs: Vital signs: Vital Signs Temperature 97.6 F 08/05/20 20:03 Pulse Rate 73 08/06/20 01:26 Respiratory Rate 16 08/06/20 01:26 Blood Pressure 165/89 08/06/20 01:26 Pulse Oximetry 97 08/06/20 01:26 MDM - Back Pain/Injury MDM Narrative: Medical decision making narrative: Pt is well appearing non toxic and in no acute distress. Pt presents with bilateral flank pain. Pt denies any fever, injury trauma, loss of bowel or bladder, numbness tingling or IV drug abuse. Pt was seen here same c/o on 07/30. Pt states he was told if pain came back to return to ER. Pt did have some mild hematuria. CT [facility], [place] [address] Scan ReportSigned Patient: Adam Schwartz #: [id number]: 1975Acct#:[id number]/Sex: 45 / MADM Date: 08/05/20Loc: ERRoom/Bed:Attending Dr: Ordering Provider/Ordering MD: Audelia Macias NP Date of Service: 08/05/20 Procedure(s): CT kidney stone 71489 Accession Number(s): [id number] Report Number: [id number] PROCEDURE INFORMATION: Exam: CT Abdomen And Pelvis Without Contrast Exam date and time: 08/05/2020 10:44 PM Age: 45 years old Clinical indication: Abdominal pain; Left; Patient HX: C/O L flank pain; Additional info: Falnk pain TECHNIQUE: Imaging protocol: Computed tomography of the abdomen and pelvis without contrast. Radiation optimization: All CT scans at this facility use at least one of these dose optimization techniques: automated exposure control; mA and/or kV adjustment per patient size (includes targeted exams where dose is matched to clinical indication); or iterative reconstruction. COMPARISON: CT kidney stone [id number] 02/25/2020 8:19 AM RADIATION DOSE METRICS: Total DLP (mGy-cm): 1977.68 FINDINGS: Lungs: There are subtle ground-glass opacity seen in the lower hemithoraces bilaterally possibly representing mild pulmonary fibrosis. Mild interstitial pneumonitis cannot be entirely excluded. Patchy areas centrilobular emphysema are seen in the lung bases bilaterally. Liver: Normal. No mass. Gallbladder and bile ducts: Normal. No calcified stones. No ductal dilation. Pancreas: Normal. No ductal dilation. Spleen: Normal. No splenomegaly. Adrenal glands: Normal. No mass. Kidneys and ureters: There are 2 nonobstructing 1.8 mm right renal calculi present. There is a 1.7 mm nonobstructing left renal calculus present. Stomach and bowel: Unremarkable. No obstruction. No mucosal thickening. Appendix: The appendix is visualized and is normal in configuration. Intraperitoneal space: Unremarkable. No free air. No significant fluid collection. Vasculature: Unremarkable. No abdominal aortic aneurysm. Lymph nodes: Unremarkable. No enlarged lymph nodes. Urinary bladder: Unremarkable as visualized. Reproductive: Unremarkable as visualized. Bones/joints: There is evidence of a healed 7th rib fracture on the right laterally. Soft tissues: Unremarkable. CT/CT kidney stone [id number] IMPRESSION: 1. There are no acute abdominal findings. 2. Bilateral nonobstructing renal calculi 3. Normal appendix 4. Probable mild centrilobular emphysema and pulmonary fibrosis. 5. No evidence for ureteral obstruction Given patients persistent pain and hematuria I will have him follow up with urology Lab Data: Labs: Lab Results 08/05/20 08/05/20 08/05/20 Range/Units 22:07 22:31 22:31 WBC 7.8 (4.0-10.0) 10^3/ uL RBC 4.49 (4.1-5.3) 10^6/u L Hgb 13.7 (11.7-16.6) g/dL Hct 39.6 L (42.0-52.0) % MCV 88.2 (80-94) fL MCH 30.5 (28.0-34.0) pg MCHC 34.6 (30.0-36.0) g/dL RDW 13.4 (12.1-15.1) % Plt Count 162 (130-400) 10^3/c mm MPV 10.2 (7.4-10.4) fL Neut % (Auto) 52.2 % Lymph % (Auto) 39.0 % [place] % (Auto) 5.9 % Eos % (Auto) 2.3 % Baso % (Auto) 0.3 % Neut # (Auto) 4.07 (1.8-7.7) 10^3/u L Lymph # (Auto) 3.0 (0.8-4.8) 10^3/u L [place] # (Auto) 0.5 (0.2-0.9) 10^3/u L Eos # (Auto) 0.2 (0.0-0.8) 10^3/u L Baso # (Auto) 0.0 (0.0-0.1) 10^3/u L Nucleated RBC % (a uto) 0 % Nucleated RBCs # 0.0 /100WBC Sodium Cancelled Potassium Cancelled Chloride Cancelled Carbon Dioxide Cancelled Anion Gap Cancelled BUN Cancelled Creatinine Cancelled GFR Calculation Cancelled Glucose Cancelled Calculated Osmolal ity Cancelled Calcium Cancelled Total Bilirubin Cancelled AST Cancelled ALT Cancelled Alkaline Phosphata se Cancelled Total Protein Cancelled Albumin Cancelled Globulin Cancelled Lipase Cancelled Urine Color Yellow (Yellow) Urine Appearance Clear (CLEAR) Urine pH 6 (5-7) Ur Specific Gravit y 1.020 (1.005-1.030) Urine Protein 1+ H (Negative) Urine Glucose (UA) 2+ (Normal) Urine Ketones Negative (Negative) Urine Blood Neg (Negative) Urine Nitrate Negative (Negative) Urine Bilirubin Neg (Negative) Urine Urobilinogen Norm (Negative) mg/dL Ur Leukocyte Carlene ase Negative (Negative) Urine RBC 0-4 H (0-2) /hpf Urine WBC 0-4 H (0-5) /hpf Ur Squamous Epith Cells None (0-5) /hpf Amorphous Sediment Not Reportable Urine Bacteria Trace (NONE) /hpf Urine Mucus 2+ /hpf 08/05/ Range/Units 23:09 WBC (4.0-10.0) 10^3/ uL RBC (4.1-5.3) 10^6/u L Hgb (11.7-16.6) g/dL Hct (42.0-52.0) % MCV (80-94) fL MCH (28.0-34.0) pg MCHC (30.0-36.0) g/dL RDW (12.1-15.1) % Plt Count (130-400) 10^3/c mm MPV (7.4-10.4) fL Neut % (Auto) % Lymph % (Auto) % [place] % (Auto) % Eos % (Auto) % Baso % (Auto) % Neut # (Auto) (1.8-7.7) 10^3/u L Lymph # (Auto) (0.8-4.8) 10^3/u L [place] # (Auto) (0.2-0.9) 10^3/u L Eos # (Auto) (0.0-0.8) 10^3/u L Baso # (Auto) (0.0-0.1) 10^3/u L Nucleated RBC % (a uto) % Nucleated RBCs # /100WBC Sodium 141 Potassium 3.8 Chloride 106 Carbon Dioxide 22 Anion Gap 16.8 BUN 12 Creatinine 0.7 GFR Calculation 123.1 Glucose 95 Calculated Osmolal ity 292 Calcium 9.0 Total Bilirubin 0.4 AST 16 ALT 23 Alkaline Phosphata se 72 Total Protein 6.6 Albumin 4.2 Globulin 2.4 Lipase 27 Urine Color (Yellow) Urine Appearance (CLEAR) Urine pH (5-7) Ur Specific Gravit y (1.005-1.030) Urine Protein (Negative) Urine Glucose (UA) (Normal) Urine Ketones (Negative) Urine Blood (Negative) Urine Nitrate (Negative) Urine Bilirubin (Negative) Urine Urobilinogen (Negative) mg/dL Ur Leukocyte Carlene ase (Negative) Urine RBC (0-2) /hpf Urine WBC (0-5) /hpf Ur Squamous Epith Cells (0-5) /hpf Amorphous Sediment Urine Bacteria (NONE) /hpf Urine Mucus /hpf Discharge Plan Discharge Patient Disposition: Home Clinical Impression: Renal calculi Condition: Stable Prescriptions: No Action metoprolol tartrate 50 mg tablet 75 mg PO BID RF: 0 aspirin 81 mg tablet,delayed release (DR/EC) 81 mg PO DAILY RF: 0 Lantus U-100 Insulin 100 unit/mL solution 76 unit SUBCUT DAILY@12 RF: 0 sildenafil 100 mg tablet 100 mg PO DAILY PRN (Reason: sexual activity) Qty: 20 RF: 12 ondansetron HCl [Zofran] 4 mg tablet 4 mg PO Q6H PRN (Reason: nausea and vomiting) Qty: 14 RF: 0 tamsulosin [Flomax] 0.4 mg capsule 0.4 mg PO DAILY Qty: 10 RF: 0 gabapentin 100 mg Capsule 100 mg PO BEDTIME RF: 0 omega 2-uwy-nwi-fish oil [Fish Oil] 1,000 mg (120 mg-180 mg) Capsule 1 cap PO BID RF: 0 pravastatin 40 mg Tablet 20 mg PO BEDTIME RF: 0 Tylenol Extra Strength 500 mg Tablet 1,000 mg PO PRN RF: 0 benzoyl peroxide 5 % Cleanser 1 applic TOPICAL QAM RF: 0 Benzoyl Peroxide 10 See Rx Instructions .ROUTE .COMPLEX RF: 0 cyclobenzaprine 10 mg tablet 10 mg PO TID Qty: 14 RF: 0 diclofenac sodium 50 mg tablet,delayed release (DR/EC) 50 mg PO Q12H PRN (Reason: pain) Qty: 20 RF: 0 Discharge Orders: Discharge ED (Routine); Ordered 08/06/20 Ordered By: Audelia Macias Referrals: Rosa Mackay MD [Primary Care Provider] - Discharge Diet: Advance as tolerated Discharge Activity: Resume usual activity Patient Instructions: Opioid Safety Activity Restrictions/Additional Instructions: Pleae take meds as directed Please follow up with urology Please return to ER with worsening of pain, numbness or tingling, loss of bowel or bladder or any other concerning symptoms Coding Level of Care Code ED Chain Builder for Chg Fwd Exam Comprehensive Documented by User: Cirilo Brand DO 08/06/20 04:00 HPI - Back Pain/Injury General: Chief Complaint: Back Pain/Injury Stated Complaint: Lower L side pain/ severe Time Seen by Provider: 08/05/20 21:50 PFSH ED PFSH: Medical History Diabetes Erectile dysfunction Hyperlipemia Hypertension Post-void dribbling Renal calculi Sleep apnea Surgical History History of placement of ear tubes History of tonsillectomy Family History Mother , 64 Cancer colon, breast, lung Diabetes Father No problems noted. Social History Smoking and tobacco status: never smoked Alcohol intake: never Marital status: Current occupational status: employed History of recent travel: No Course Vital Signs: Vital signs: Vital Signs Temperature 97.6 F 08/05/20 20:03 Pulse Rate 73 08/06/20 01:26 Respiratory Rate 16 08/06/20 01:26 Blood Pressure 165/89 08/06/20 01:26 Pulse Oximetry 97 08/06/20 01:26 MDM - Back Pain/Injury MDM Narrative: Medical decision making narrative: 45-year-old male originally seen by Mrs. MaciasTRENA. I agree with her history, evaluation, and management. This gentleman has bilateral flank and back pain. His CT was nonacute. His labs are benign. He has some disc disease by CT, but nothing severe on my reading, and radiology as well. He has intrarenal calculi and hematuria. We will ask him to follow-up with urology as an outpatient if needed. Lab Data: Labs: Lab Results 08/05/20 08/05/20 08/05/20 Range/Units 22:07 22:31 22:31 WBC 7.8 (4.0-10.0) 10^3/ uL RBC 4.49 (4.1-5.3) 10^6/u L Hgb 13.7 (11.7-16.6) g/dL Hct 39.6 L (42.0-52.0) % MCV 88.2 (80-94) fL MCH 30.5 (28.0-34.0) pg MCHC 34.6 (30.0-36.0) g/dL RDW 13.4 (12.1-15.1) % Plt Count 162 (130-400) 10^3/c mm MPV 10.2 (7.4-10.4) fL Neut % (Auto) 52.2 % Lymph % (Auto) 39.0 % [place] % (Auto) 5.9 % Eos % (Auto) 2.3 % Baso % (Auto) 0.3 % Neut # (Auto) 4.07 (1.8-7.7) 10^3/u L Lymph # (Auto) 3.0 (0.8-4.8) 10^3/u L [place] # (Auto) 0.5 (0.2-0.9) 10^3/u L Eos # (Auto) 0.2 (0.0-0.8) 10^3/u L Baso # (Auto) 0.0 (0.0-0.1) 10^3/u L Nucleated RBC % (a uto) 0 % Nucleated RBCs # 0.0 /100WBC Sodium Cancelled Potassium Cancelled Chloride Cancelled Carbon Dioxide Cancelled Anion Gap Cancelled BUN Cancelled Creatinine Cancelled GFR Calculation Cancelled Glucose Cancelled Calculated Osmolal ity Cancelled Calcium Cancelled Total Bilirubin Cancelled AST Cancelled ALT Cancelled Alkaline Phosphata se Cancelled Total Protein Cancelled Albumin Cancelled Globulin Cancelled Lipase Cancelled Urine Color Yellow (Yellow) Urine Appearance Clear (CLEAR) Urine pH 6 (5-7) Ur Specific Gravit y 1.020 (1.005-1.030) Urine Protein 1+ H (Negative) Urine Glucose (UA) 2+ (Normal) Urine Ketones Negative (Negative) Urine Blood Neg (Negative) Urine Nitrate Negative (Negative) Urine Bilirubin Neg (Negative) Urine Urobilinogen Norm (Negative) mg/dL Ur Leukocyte Carlene ase Negative (Negative) Urine RBC 0-4 H (0-2) /hpf Urine WBC 0-4 H (0-5) /hpf Ur Squamous Epith Cells None (0-5) /hpf Amorphous Sediment Not Reportable Urine Bacteria Trace (NONE) /hpf Urine Mucus 2+ /hpf 08/05/20 Range/Units 23:09 WBC (4.0-10.0) 10^3/ uL RBC (4.1-5.3) 10^6/u L Hgb (11.7-16.6) g/dL Hct (42.0-52.0) % MCV (80-94) fL MCH (28.0-34.0) pg MCHC (30.0-36.0) g/dL RDW (12.1-15.1) % Plt Count (130-400) 10^3/c mm MPV (7.4-10.4) fL Neut % (Auto) % Lymph % (Auto) % [place] % (Auto) % Eos % (Auto) % Baso % (Auto) % Neut # (Auto) (1.8-7.7) 10^3/u L Lymph # (Auto) (0.8-4.8) 10^3/u L [place] # (Auto) (0.2-0.9) 10^3/u L Eos # (Auto) (0.0-0.8) 10^3/u L Baso # (Auto) (0.0-0.1) 10^3/u L Nucleated RBC % (a uto) % Nucleated RBCs # /100WBC Sodium 141 Potassium 3.8 Chloride 106 Carbon Dioxide 22 Anion Gap 16.8 BUN 12 Creatinine 0.7 GFR Calculation 123.1 Glucose 95 Calculated Osmolal ity 292 Calcium 9.0 Total Bilirubin 0.4 AST 16 ALT 23 Alkaline Phosphata se 72 Total Protein 6.6 Albumin 4.2 Globulin 2.4 Lipase 27 Urine Color (Yellow) Urine Appearance (CLEAR) Urine pH (5-7) Ur Specific Gravit y (1.005-1.030) Urine Protein (Negative) Urine Glucose (UA) (Normal) Urine Ketones (Negative) Urine Blood (Negative) Urine Nitrate (Negative) Urine Bilirubin (Negative) Urine Urobilinogen (Negative) mg/dL Ur Leukocyte Carlene ase (Negative) Urine RBC (0-2) /hpf Urine WBC (0-5) /hpf Ur Squamous Epith Cells (0-5) /hpf Amorphous Sediment Urine Bacteria (NONE) /hpf Urine Mucus /hpf Discharge Plan Discharge Patient Disposition: Home Clinical Impression: Renal calculi Condition: Stable Prescriptions: No Action metoprolol tartrate 50 mg tablet 75 mg PO BID RF: 0 aspirin 81 mg tablet,delayed release (DR/EC) 81 mg PO DAILY RF: 0 Lantus U-100 Insulin 100 unit/mL solution 76 unit SUBCUT DAILY@12 RF: 0 sildenafil 100 mg tablet 100 mg PO DAILY PRN (Reason: sexual activity) Qty: 20 RF: 12 ondansetron HCl [Zofran] 4 mg tablet 4 mg PO Q6H PRN (Reason: nausea and vomiting) Qty: 14 RF: 0 tamsulosin [Flomax] 0.4 mg capsule 0.4 mg PO DAILY Qty: 10 RF: 0 gabapentin 100 mg Capsule 100 mg PO BEDTIME RF: 0 omega 3-ffo-kof-fish oil [Fish Oil] 1,000 mg (120 mg-180 mg) Capsule 1 cap PO BID RF: 0 pravastatin 40 mg Tablet 20 mg PO BEDTIME RF: 0 Tylenol Extra Strength 500 mg Tablet 1,000 mg PO PRN RF: 0 benzoyl peroxide 5 % Cleanser 1 applic TOPICAL QAM RF: 0 Benzoyl Peroxide 10 See Rx Instructions .ROUTE .COMPLEX RF: 0 cyclobenzaprine 10 mg tablet 10 mg PO TID Qty: 14 RF: 0 diclofenac sodium 50 mg tablet,delayed release (DR/EC) 50 mg PO Q12H PRN (Reason: pain) Qty: 20 RF: 0 Discharge Orders: Discharge ED (Routine); Ordered 08/06/20 Ordered By: Audelia Macias Referrals: Rosa Mackay MD [Primary Care Provider] - Discharge Diet: Advance as tolerated Discharge Activity: Resume usual activity Patient Instructions: Opioid Safety Activity Restrictions/Additional Instructions: Pleae take meds as directed Please follow up with urology Please return to ER with worsening of pain, numbness or tingling, loss of bowel or bladder or any other concerning symptoms Coding Level of Care Code ED Chain Builder for Elena Fwd Exam Comprehensive
[2020-08-06 01:26] VITALS: BP 165/89; PULSE 73; RESP 16; O2SAT 97
--- NOTE | 2020-08-07 10:42 | DCPLANNER ---
clerical manager had message to schedule a follow up appointment for patient with Dr. Garner. clerical manager called the office of Dr. Garner, spoke with Maggie, gave clinic patients information. clerical manager was told that patients information would be printed and reviewed. Clinic will call patient with appointment information.
--- NOTE | 2020-08-08 12:59 | DCPLANNER ---
Patient has a follow up appointment scheduled for , August 16, [address] at 4:[address] Garner. Clinic will call patient with appointment information.
--- NOTE | 2020-10-02 07:50 | DCPLANNER ---
Patient had an appointment scheduled for 08.16.[address] Garner - patient did attend appointment.
== END 2020-08-06 01:27 | disposition home or self-care (01) ==
PROVIDERS: Emergency Provider Registered Nurse; PCP Family Medicine
DX: N20.0 Calculus of kidney (principal); Z79.82 Long term (current) use of aspirin; Z79.4 Long term (current) use of insulin; E11.9 Type 2 diabetes mellitus without complications; E78.5 Hyperlipidemia, unspecified; Z87.442 Personal history of urinary calculi
CPT/HCPCS: 36415; 74176; 80053; 81001; 83690; 85025; 96374; 99283; J1885

== ENCOUNTER 2020-08-16 01:11 | Emergency (ER) | payer OTHER, SELFPAY ==
[2020-08-16 01:20] VITALS: BP 162/109; PULSE 89; RESP 18; TEMP 37.1; O2SAT 97; BMI 37.1
--- NOTE | 2020-08-16 01:33 | ED_ITS ---
HPI - Back Pain/Injury General: Chief Complaint: Back Pain/Injury Stated Complaint: possible kidney stones Time Seen by Provider: 08/16/20 01:20 Source: patient Mode of arrival: ambulatory Limitations: no limitations History of Present Illness: HPI Narrative: 45-year-old male states been having left lower back pain over the last week. He states he does have bilateral kidney stones are in his kidney doctor always before and he sees him tomorrow. States pain got worse tonight. His pain is worse with walking and with tender to palpation. Denies any bowel or bladder incontinence. States pain is worse improved with rest. He rates it a 2 out of 10 currently Associated symptoms: Deny abdominal pain, chills, dysuria, fever(s), nausea or vomiting Review of Systems Const: Denies: fever(s), chills, body aches or change in appetite Eyes: Denies: blurry vision or eye discomfort ENMT: Denies: throat pain or dental pain Card: Denies: chest pain Resp: Denies: dyspnea GI: Denies: abdominal pain, nausea, vomiting or diarrhea : Denies: dysuria Musc: Reports: back pain; Denies: neck pain Skin/Breast: Denies: rash Neuro: Denies: headache(s) Psych: Denies: depression Johnathan/Lymph: Denies: easy bruising All/Imm: Denies: urticaria PFSH ED PFSH: Medical History Diabetes Erectile dysfunction Hyperlipemia Hypertension Post-void dribbling Renal calculi Sleep apnea Surgical History History of placement of ear tubes History of tonsillectomy Family History Mother , 64 Cancer colon, breast, lung Diabetes Father No problems noted. Social History Smoking and tobacco status: never smoked Alcohol intake: never Marital status: Current occupational status: employed History of recent travel: No Physical Exam Const: COMMON NORMALS: no acute distress, patient oriented x3 and healthy appearing HENMT: COMMON NORMALS: normocephalic and atraumatic HEAD & SCALP: normocephalic and atraumatic Eye: COMMON NORMALS: Equal, round and reactive pupils present and EOMs intact bilaterally PUPIL: Yes Equal, round and reactive pupils present Neck/C-Spine: COMMON NORMALS: full ROM and supple Chest: COMMONS NORMALS: normal inspection of the chest and normal palpation of entire chest wall Resp: COMMON NORMALS: normal respiratory effort, No retractions, No use of accessory muscles and clear to auscultation bilaterally AUSCULTATION: clear to auscultation bilaterally Cardio: COMMON NORMALS: regular rate, regular rhythm and No murmurs present (Cardio) RATE: regular rate RHYTHM: regular rhythm GI: COMMON NORMALS: Normal to inspection, nondistended, normoactive bowel sounds present, Soft to palpation, non-tender and no masses PALPATION: Yes Soft to palpation Back/Pelvis: OTHER: Tender left lower back to palpation no midline tenderness no saddle anesthesia Extremity: COMMON NORMALS: normal to inspection and full ROM Neuro: COMMON NORMALS: patient oriented x3, moves all extremities and no focal motor deficits Psych: COMMON NORMALS: mental status grossly normal, Normal thought process present and cooperative THOUGHT PROCESS: Normal thought process present Skin: COMMON NORMALS: no rashes or lesions noted and no wounds GENERAL SKIN EXAM: no rashes or lesions noted Course Vital Signs: Vital signs: Vital Signs Temperature 98.7 F 08/16/20 01:20 Pulse Rate 89 08/16/20 01:20 Respiratory Rate 18 08/16/20 01:20 Blood Pressure 162/109 08/16/20 01:20 Pulse Oximetry 97 08/16/20 01:20 MDM - Back Pain/Injury MDM Narrative: Medical decision making narrative: Patient presents with back pain is likely muscular in nature. He is point tender on exam. Is no signs of cord compression or epidural abscess. He is stable for discharge and is to follow-up with Dr. Garner in the morning. Discharge Plan Discharge Patient Disposition: Home Clinical Impression: Low back pain Qualifiers: Chronicity: chronic Back pain laterality: left Sciatica presence: without sciatica Qualified Code(s): M54.5 - Low back pain Condition: Stable Prescriptions: New Robaxin-750 750 mg tablet 750 mg PO Q6H Qty: 30 RF: 0 Naprosyn 500 mg tablet 500 mg PO BID PRN (Reason: pain) Qty: 20 RF: 0 No Action metoprolol tartrate 50 mg tablet 75 mg PO BID RF: 0 aspirin 81 mg tablet,delayed release (DR/EC) 81 mg PO DAILY RF: 0 Lantus U-100 Insulin 100 unit/mL solution 76 unit SUBCUT DAILY@12 RF: 0 sildenafil 100 mg tablet 100 mg PO DAILY PRN (Reason: sexual activity) Qty: 20 RF: 12 ondansetron HCl [Zofran] 4 mg tablet 4 mg PO Q6H PRN (Reason: nausea and vomiting) Qty: 14 RF: 0 tamsulosin [Flomax] 0.4 mg capsule 0.4 mg PO DAILY Qty: 10 RF: 0 gabapentin 100 mg Capsule 100 mg PO BEDTIME RF: 0 omega 0-ewq-ifl-fish oil [Fish Oil] 1,000 mg (120 mg-180 mg) Capsule 1 cap PO BID RF: 0 pravastatin 40 mg Tablet 20 mg PO BEDTIME RF: 0 Tylenol Extra Strength 500 mg Tablet 1,000 mg PO PRN RF: 0 benzoyl peroxide 5 % Cleanser 1 applic TOPICAL QAM RF: 0 Benzoyl Peroxide 10 See Rx Instructions .ROUTE .COMPLEX RF: 0 cyclobenzaprine 10 mg tablet 10 mg PO TID Qty: 14 RF: 0 diclofenac sodium 50 mg tablet,delayed release (DR/EC) 50 mg PO Q12H PRN (Reason: pain) Qty: 20 RF: 0 Discharge Orders: Discharge ED (Routine); Ordered 08/16/20 Ordered By: Shawna Woodard Referrals: Rosa Mackay MD [Primary Care Provider] - Discharge Diet: Advance as tolerated Discharge Activity: Resume usual activity Patient Instructions: Back Pain (ED) Coding Level of Care Code ED [employer] for Elena Bradshaw
[2020-08-16] MEDS: ketorolac 60 mg/2 mL INJ IM (01:40)
== END 2020-08-16 01:54 | disposition home or self-care (01) ==
PROVIDERS: Emergency Provider Emergency Medicine; PCP Family Medicine
DX: G89.29 Other chronic pain (principal); M54.5 Low back pain; Z79.82 Long term (current) use of aspirin; Z79.4 Long term (current) use of insulin; E11.9 Type 2 diabetes mellitus without complications; E78.5 Hyperlipidemia, unspecified; I10 Essential (primary) hypertension
CPT/HCPCS: 96372; 99282; J1885

== ENCOUNTER 2020-08-16 12:55 | Outpatient (CLI) | payer OTHER, SELFPAY ==
--- NOTE | 2020-08-16 15:00 | XR_ITS ---
WS: [id number] KUB, AP view, 08/16/2020 Clinical Data: N20.0 - Calculus of kidney Comparison: KUB, 07/27/2020. Findings: No abnormal intraabdominal masses or calcifications are seen. There is no dilatated small bowel or ev idence of obstruction. No phleboliths are seen. XR/XR KUB [id number] Impression: Negative KUB.
== END 2020-08-16 12:56 | disposition home or self-care (01) ==
LOC: RAD 12:56
PROVIDERS: PCP Family Medicine; Visit Provider Urology
DX: N20.0 Calculus of kidney (principal)
CPT/HCPCS: 74018; 81003